=== PATIENT | male | born 1990 | race Caucasian/White ===

== ENCOUNTER 2019-10-30 11:45 | Emergency (ER) | payer OTHER ==
[~2019-10-30] VITALS: Ht 165.1 cm; Wt 67.1 kg
[~2019-10-30 11:45] MED LIST: ARIP2TAB3 PO; BUPR100T4 PO
--- NOTE | 2019-10-30 11:50 | NUR ---
BIB [facility], DROWSY AFTER TAKING XANAX, TO ER BED 13, HOOKED TO MONITOR, CHANGED TO HOSP GOWN, WARM BLANKET PROVIDED, BREATHING EVEN AND UNABORED, PATIENT OPENS EYES WHEN CALLED, WILL GO BACK TO SLEEP AFTER. DR LOCKE AT BEDSIDE FOR EVAL.
--- NOTE | 2019-10-30 13:33 | NUR ---
PATIENT IN BED ASLEEP, AROUSABLE BY TACTILE AND VERBAL STIMULI, HOOKED TO MONITOR, VSS. WILL CONTINUE TO MONITOR ACCORDINGLY.
--- NOTE | 2019-10-30 15:09 | NUR ---
PATIENT IN BED ASLEEP, AROUSABLE BY TATCILE AND VERBAL STIMULI, OPENS EYES, DOES NOT ANSWER QUESTIONS, AND GOES BACK TO SLEEP RIGHT AFTER. HOOKED TO MONITOR, VSS. WILL CONTINUE TO MONITOR ACORDINGLY.
--- NOTE | 2019-10-30 17:09 | NUR ---
PATIENT COMFORTABLE IN BED, AROUSABLE BY TATCILE AND VERBAL STIMULI, HOOKED TO MONITOR, VSS. WILL CONTINUE TO MONITOR.
--- NOTE | 2019-10-30 18:12 | NUR ---
PATIENT AWAKE, AAO, AMBULATED TO THE RESTROOM WITH STEADY GAIT. MADE MD AWARE
--- NOTE | 2019-10-30 19:11 | NUR ---
Patient given written and verbal discharge instructions. Patient verbalizes understanding of instructions. Patient is ambulatory with steady gait. Refuses offer of fci placement. Patient given list of available shelters in surrounding area. Patient discharged w proper clothing, name band removed, all belongings returned to patient.
[2019-10-30 19:13] VITALS: BP 134/56
== END 2019-10-30 19:13 | disposition home or self-care (01) ==
LOC: ER 11:45
DX: S00.33XA Contusion of nose, initial encounter (principal); F19.10 Other psychoactive substance abuse, uncomplicated; F32.9 Major depressive disorder, single episode, unspecified; F41.9 Anxiety disorder, unspecified; F17.200 Nicotine dependence, unspecified, uncomplicated; Z79.899 Other long term (current) drug therapy; W18.39XA Other fall on same level, initial encounter; Y93.89 Activity, other specified; Y92.89 Other specified places as the place of occurrence of the external cause; Y99.8 Other external cause status
CPT/HCPCS: 70450-TC

== ENCOUNTER 2020-10-18 06:03 | Inpatient (IN) | payer OTHER ==
[~2020-10-18] VITALS: Ht 162.6 cm; Wt 69.9 kg
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
--- NOTE | 2020-10-18 06:10 | NUR ---
DR. ROWE AT BEDSIDE FOR EVALUATION
--- NOTE | 2020-10-18 06:25 | NUR ---
URINE COLLECTED AND SENT TO THE LAB.
--- NOTE | 2020-10-18 06:45 | NUR ---
PER ENRIQUE OFFICER, CALL WHEN THE SUBJECT IS READY TO BE RELEASED.
--- NOTE | 2020-10-18 07:30 | NUR ---
The patient sleeping in ER bed #12. Responsive to tactile stimuli by opening eyes. Respiration regular and unlabored. Patient is in no apparent distress. Attached to the monitor. Will continue to monitor the patient.
--- NOTE | 2020-10-18 09:55 | NUR ---
PT ASLEEP, AWAKEN BY TACTILE STIMULI, WILL OPEN BOTH EYES & WILL GO BACK TO SLEEP. RR EVEN & UNLABORED. ON TELE, SR. O2 SAT 100. WILL CONT TO MONITOR.
--- NOTE | 2020-10-18 11:53 | NUR ---
PT ASLEEP, AWAKEN BY TACTILE STIMULI, WILL OPEN BOTH EYES & WILL GO BACK TO SLEEP. RR EVEN & UNLABORED. ON TELE, SR. O2 SAT 100% ON 2L. WILL CONT TO MONITOR.
[2020-10-18 12:13] LABS: BASOPHILS % (AUTO) 0.8 % (0.0-2.0); EOSINOPHILS % (AUTO) 1.9 % (0.0-6.0); HEMATOCRIT 42 % (39-51); HEMOGLOBIN 13.9 g/dL (13.5-17.5); MEAN CORPUSCULAR HGB CONC 33 g/dl (31.0-36.0); MEAN CORPUSCULAR VOLUME 88 fL (80-96); MONOCYTES # (AUTO) 0.4 /CMM (0.1-1.30); MONOCYTES % (AUTO) 7.2 % (2.0-12.0); NEUTROPHILS # (AUTO) 3.6 /CMM (1.8-8.9); NEUTROPHILS % (AUTO) 58.1 % (43.0-81.0); PLATELET COUNT (AUTO) 234 /CMM (150-450); RED BLOOD CELL COUNT(AUTO) 4.79 MIL/uL (4.5-6.0); WHITE BLOOD COUNT (AUTO) 6.2 K/uL (4.3-11.0)
--- NOTE | 2020-10-18 12:17 | NUR ---
Vibration Engineer note: technical services coordinator consult requested for overdose. Patient is a 30-year-old, male. Upon consult, patient was being taken to a CT scan. SW will continue to follow up with nursing staff and interview patient at a later time.
[2020-10-18 12:28] LABS: ALANINE AMINOTRANSFERASE 21 U/L (12-78); ALBUMIN 3.3 g/dL (3.4-5.0); ALCOHOL, BLOOD < 3 mg/dL (0-0); ALKALINE PHOSPHATASE 83 U/L (46-116); ASPARTATE AMINOTRANSFERASE 17 U/L (15-37); BILIRUBIN,DIRECT 0.1 mg/dL (0.0-0.2); BILIRUBIN,TOTAL 0.4 mg/dL (0.2-1.0); CALCIUM, SERUM 8.7 mg/dL (8.5-10.1); CARBON DIOXIDE 30 mmol/L (21-32); CHLORIDE 106 mmol/L (98-107); CREATININE 0.8 mg/dL (0.6-1.3); GLUCOSE 95 mg/dL (74-106); SODIUM SERUM 142 mmol/L (136-145); TOTAL PROTEIN, SERUM 6.5 g/dL (6.4-8.2); UREA NITROGEN, BLOOD 14 mg/dL (7-18)
[2020-10-18 12:54] LABS: ACETAMINOPHEN 0 ug/ml (10-30)
--- NOTE | 2020-10-18 13:30 | NUR ---
Red Lead Burner note: coordinator of library services consult requested for overdose. Patient is a 30-year-old, male. SW attempted to interview patient at his bedside in the emergency department, but patient was unarousable. SW notified ED RN Ugo that substance use resources have been filed in patient's discharge packet. ALONSO will continue to follow up with ED nursing staff and remain available as needed. Substance use resources provided included: [facility] Substance Abuse Self-Helpline (SAS) ; [facility] [address] [facility] [place] [id number] ; [facility] [address] [facility] [address] ; [facility] [address] [facility] [facility] [address] ; [facility] [address] [facility] [address] ; [facility] [address] [facility] [phone] ; [facility]; [facility] [place]; [facility]; [facility]
--- NOTE | 2020-10-18 23:00 | NUR ---
REMAINS IN BED, ASLEEP, VSS.
--- NOTE | 2020-10-18 23:20 | NUR ---
CLINICAL INFO GIVEN TO JIMENA [employer] INSTRUCTOR OVER THE PHONE AND VERBAL AUTH REC'D TO ADMIT THE PT
[2020-10-19] MEDS ORDERED: MAG HYDROX/AL HYDROX/SIMETH 30 ML UDC PO PRN
[2020-10-19] MEDS ORDERED: HYDROCODONE/APAP 5/325MG TABLET PO PRN
[2020-10-19] MEDS ORDERED: IV NS 0.9% 1,000 ML IV SCH
[2020-10-19] MEDS ORDERED: Z GUARD REMEDY 2 OZ OINT TP PRN
[2020-10-19] MEDS ORDERED: ZOLPIDEM TARTRATE 5 MG TABLET PO PRN
[2020-10-19] MEDS ORDERED: ACETAMINOPHEN 325 MG TABLET PO PRN
[2020-10-19] MEDS ORDERED: MAGNESIUM HYDROXIDE 30 ML UDC PO PRN
[2020-10-19] MEDS ORDERED: ONDANSETRON HCL/PF 4 MG/2 ML VIAL IVP PRN
[2020-10-19 00:30] VITALS: BP 119/76
--- NOTE | 2020-10-19 00:32 | NUR ---
report given to Mere. endorsed to RN to call [employer] once the pt is medically clear and ready for D/C.
[2020-10-19 01:00] VITALS: BP 119/76
--- NOTE | 2020-10-19 01:00 | NUR ---
pt was transferred to 314 under ACLS
[2020-10-19 04:00] VITALS: BP 112/72
[2020-10-19 06:42] LABS: CALCIUM, SERUM 8.2 mg/dL (8.5-10.1); CREATININE 0.8 mg/dL (0.6-1.3); PHOSPHORUS 3.8 mg/dL (2.5-4.9)
[2020-10-19 07:08] LABS: BASOPHILS % (AUTO) 0.2 % (0.0-2.0); EOSINOPHILS % (AUTO) 1.1 % (0.0-6.0); HEMATOCRIT 42 % (39-51); HEMOGLOBIN 13.9 g/dL (13.5-17.5); LYMPHOCYTES # (AUTO) 1.7 /CMM (0.8-4.8); LYMPHOCYTES % (AUTO) 17.5 % (20.0-44.0); MEAN CORPUSCULAR HGB CONC 34 g/dl (31.0-36.0); MEAN CORPUSCULAR VOLUME 88 fL (80-96); MONOCYTES # (AUTO) 0.7 /CMM (0.1-1.30); MONOCYTES % (AUTO) 7.5 % (2.0-12.0); NEUTROPHILS % (AUTO) 73.7 % (43.0-81.0); PLATELET COUNT (AUTO) 210 /CMM (150-450); RED BLOOD CELL COUNT(AUTO) 4.73 MIL/uL (4.5-6.0); WHITE BLOOD COUNT (AUTO) 9.6 K/uL (4.3-11.0)
--- NOTE | 2020-10-19 07:17 | NUR ---
BAREBACK RIDER OPENING NOTES PATIENT ALERT AND ORIENTED X 3. OBSERVED PATIENT HE WAS STANDING UP. PATIENT STATED, "I NEED TO LEAVE." I INFORMED HIM HE WILL BE SEEN BY THE DOCTOR TODAY, BUT PATIENT DID NOT WANT TO COMPLY. I INFORMED PATIENT OF MEDICAL RISKS IF PATIENT LEAVES. PATIENT REMOVED IV FROM SELF, UNWITNESSED. PATIENT REFUSED TO SIGN AMA CONSENT AND EXITED THE UNIT AT 0710. CHARGE NURSE, AMADOR GIFFORD.
[2020-10-19] MEDS ORDERED: ARIPIPRAZOLE 2 MG TABLET PO SCH (09:00)
[2020-10-19] MEDS ORDERED: buPROPion 100 MG TABLET PO SCH (09:00)
== END 2020-10-19 07:10 | disposition left against medical advice (07) | DRG 812 ==
LOC: ER 06:04 → TELE 10-19 00:35
PROVIDERS: ADMIT Family Medicine; ATTEND Nurse Practitioner Acute Care
DX: T40.601A Poisoning by unspecified narcotics, accidental (unintentional), initial encounter (principal); G92 Toxic encephalopathy; F20.9 Schizophrenia, unspecified; F32.9 Major depressive disorder, single episode, unspecified; Y92.480 Sidewalk as the place of occurrence of the external cause; F41.9 Anxiety disorder, unspecified; Y92.9 Unspecified place or not applicable; Z79.899 Other long term (current) drug therapy; F19.10 Other psychoactive substance abuse, uncomplicated; Z20.822 Contact with and (suspected) exposure to COVID-19
CPT/HCPCS: 36415; 70450-TC; 72125-TC; 80048-TC; 80061-TC; 80076-TC; 82962-TC; 83735-TC; 84100-TC; 85025-TC; 87081-TC; C9803; G0378; G0480; J7030

== ENCOUNTER 2020-10-21 17:13 | Emergency (ER) | payer OTHER ==
[~2020-10-21] VITALS: Ht 162.6 cm; Wt 63.5 kg
[2020-10-21 17:21] VITALS: BP 100/47
[2020-10-21] MEDS ORDERED: RALT400T PO (17:51)
[2020-10-21] MEDS ORDERED: EMTR1TAB12 PO (17:51)
--- NOTE | 2020-10-21 18:00 | NUR ---
PT WAS SEEN BY ED PROVIDER.
== END 2020-10-21 18:00 | disposition left against medical advice (07) ==
LOC: ER 17:13
DX: L98.9 Disorder of the skin and subcutaneous tissue, unspecified (principal); Z77.21 Contact with and (suspected) exposure to potentially hazardous body fluids; F32.9 Major depressive disorder, single episode, unspecified; F41.9 Anxiety disorder, unspecified; F20.9 Schizophrenia, unspecified; F17.200 Nicotine dependence, unspecified, uncomplicated; Z79.899 Other long term (current) drug therapy; Z59.0 Homelessness

== ENCOUNTER 2020-10-25 09:12 | Emergency (ER) | payer OTHER ==
[~2020-10-25] VITALS: Ht 167.6 cm; Wt 65.8 kg
[~2020-10-25 09:12] MED LIST changes: +EMTR1TAB12 PO; +RALT400T PO
--- NOTE | 2020-10-25 09:13 | NUR ---
CALLED TO TRIAGE,NO ANSWER
[2020-10-25 09:30] VITALS: BP 129/88
[2020-10-25] MEDS ORDERED: POLY17PO4 PO (09:35)
== END 2020-10-25 09:48 | disposition home or self-care (01) ==
LOC: ER 09:16
DX: K59.00 Constipation, unspecified (principal); F41.9 Anxiety disorder, unspecified; F31.9 Bipolar disorder, unspecified; F20.9 Schizophrenia, unspecified; F10.10 Alcohol abuse, uncomplicated; F17.200 Nicotine dependence, unspecified, uncomplicated; Y90.9 Presence of alcohol in blood, level not specified; Z79.899 Other long term (current) drug therapy

== ENCOUNTER 2020-12-17 08:48 | Emergency (ER) | payer OTHER ==
[~2020-12-17] VITALS: Ht 165.1 cm; Wt 68.0 kg
[~2020-12-17 08:48] MED LIST changes: +POLY17PO4 PO
[2020-12-17 08:54] VITALS: BP 106/67
--- NOTE | 2020-12-17 09:23 | NUR ---
Patient discharged to home in stable condition. Written and verbal after care instructions given. Patient verbalizes understanding of instruction.
== END 2020-12-17 09:23 | disposition home or self-care (01) ==
LOC: ER 09:06
DX: R21 Rash and other nonspecific skin eruption (principal); F32.9 Major depressive disorder, single episode, unspecified; F20.9 Schizophrenia, unspecified; F41.9 Anxiety disorder, unspecified; F17.200 Nicotine dependence, unspecified, uncomplicated; Z79.899 Other long term (current) drug therapy

== ENCOUNTER 2021-11-26 09:52 | Emergency (ER) | payer SELFPAY ==
[~2021-11-26] VITALS: Ht 167.6 cm; Wt 74.8 kg
[2021-11-26] MEDS ORDERED: NALO1DIS2 IM (10:00)
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
[2021-11-26 10:08] VITALS: BP 135/81
--- NOTE | 2021-11-26 10:08 | NUR ---
Patient given written and verbal discharge instructions. Patient verbalizes understanding of instructions. Patient is ambulatory with steady gait. Refuses offer of alf placement. Patient given list of available shelters in surrounding area.
== END 2021-11-26 10:08 | disposition home or self-care (01) ==
LOC: ER 09:54
DX: T40.601A Poisoning by unspecified narcotics, accidental (unintentional), initial encounter (principal); F32.A Depression, unspecified; F41.9 Anxiety disorder, unspecified; F20.9 Schizophrenia, unspecified; F17.200 Nicotine dependence, unspecified, uncomplicated; Z79.899 Other long term (current) drug therapy; Y92.89 Other specified places as the place of occurrence of the external cause

== ENCOUNTER 2021-12-10 17:40 | Emergency (ER) | payer SELFPAY ==
[~2021-12-10 17:40] MED LIST changes: +NALO1DIS2 IM
--- NOTE | 2021-12-10 17:43 | NUR ---
CALLED FOR TRIAGE NO ANSWER
--- NOTE | 2021-12-10 17:55 | NUR ---
CALLED FOR TRIAGE, NO ANSWER
== END 2021-12-10 18:00 | disposition left against medical advice (07) ==
LOC: ER 17:42
DX: Z53.21 Procedure and treatment not carried out due to patient leaving prior to being seen by health care provider (principal)

== ENCOUNTER 2022-02-25 18:41 | Emergency (ER) | payer SELFPAY ==
[~2022-02-25] VITALS: Ht 165.1 cm; Wt 61.2 kg
[2022-02-25 19:50] VITALS: BP 118/68
--- NOTE | 2022-02-25 19:50 | NUR ---
Patient discharged to home in stable condition. Written and verbal after care instructions given. Patient verbalizes understanding of instruction.
== END 2022-02-25 20:47 | disposition home or self-care (01) ==
LOC: ER 18:42
DX: K40.90 Unilateral inguinal hernia, without obstruction or gangrene, not specified as recurrent (principal); F32.A Depression, unspecified; F41.9 Anxiety disorder, unspecified; F20.9 Schizophrenia, unspecified; F17.200 Nicotine dependence, unspecified, uncomplicated; Z79.899 Other long term (current) drug therapy

== ENCOUNTER 2022-03-10 16:54 | Emergency (ER) | payer SELFPAY ==
[~2022-03-10] VITALS: Ht 165.1 cm; Wt 59.0 kg
[2022-03-10 17:40] VITALS: BP 131/72
[2022-03-10] MEDS ORDERED: CEPH500C2 PO (17:56)
[2022-03-10] MEDS ORDERED: SULF1TAB48 PO (17:56)
== END 2022-03-10 18:09 | disposition home or self-care (01) ==
LOC: ER 16:54
DX: L03.211 Cellulitis of face (principal); M19.90 Unspecified osteoarthritis, unspecified site; F32.A Depression, unspecified; F20.9 Schizophrenia, unspecified; F41.9 Anxiety disorder, unspecified; F17.200 Nicotine dependence, unspecified, uncomplicated; Z79.899 Other long term (current) drug therapy

== ENCOUNTER 2022-04-03 23:07 | Emergency (ER) | payer SELFPAY ==
[~2022-04-03 23:07] MED LIST changes: +CEPH500C2 PO; +SULF1TAB48 PO
--- NOTE | 2022-04-04 | NUR ---
PATIENT CALLED TO TRIAGE NO ANSWER
--- NOTE | 2022-04-04 00:15 | NUR ---
PATIENT NOT IN WAITING ROOM
== END 2022-04-04 00:20 | disposition left against medical advice (07) ==
LOC: ER 23:15
DX: Z53.21 Procedure and treatment not carried out due to patient leaving prior to being seen by health care provider (principal)

== ENCOUNTER 2023-05-15 13:54 | Inpatient (IN) | payer MEDICAID ==
[~2023-05-15] VITALS: Ht 160 cm; Wt 60.3 kg
[~2023-05-15 13:54] MED LIST changes: +BENZ-13 PO; +GUAI1TBM19 PO; +MINE105O TP
[2023-05-15 17:37] VITALS: O2SAT 100
[2023-05-15 17:41] VITALS: O2SAT 100
[2023-05-15 18:47] VITALS: BP 96/70; TEMP 98.2; O2SAT 100
[2023-05-15] MEDS ORDERED: DIPHENOXYLATE HCL/ATROP SULF 1 UDTAB TABLET GT PRN ×2 (20:00→21:00)
[2023-05-15] MEDS ORDERED: ACETAMINOPHEN 650 MG/20.3 ML UDC PO PRN (20:00)
[2023-05-15] MEDS ORDERED: CLONIDINE HCL 0.1 MG TABLET PO SCH (20:00)
[2023-05-15 20:18] VITALS: O2SAT 98
[2023-05-15] MEDS ORDERED: IBUPROFEN 400 MG TABLET GT PRN (20:30)
[2023-05-15] MEDS ORDERED: TUBERCULIN,PURIF.PROT.DERIV. 5 TU/0.1 ML VIAL ID SCH (20:30)
[2023-05-15] MEDS ORDERED: VITAL AF 1.2 1,000 ML BOTTLE GT PRN (20:30)
[2023-05-15] MEDS ORDERED: GABAPENTIN 300 MG CAPSULE GT SCH (20:30)
[2023-05-15] MEDS ORDERED: QUETIAPINE FUMARATE 100 MG TABLET PO SCH (20:30)
[2023-05-15] MEDS ORDERED: ENOXAPARIN SODIUM 30 MG/0.3 ML DISP.SYRIN SQ SCH (20:30)
[2023-05-15] MEDS ORDERED: oxyCODONE IR immediate release 5 MG TABLET GT PRN (20:30)
[2023-05-15] MEDS ORDERED: INSULIN ASPART/LISPRO 100 UNIT/ML CARTRIDGE SQ PRN (20:30)
[2023-05-15] MEDS ORDERED: IPRATROPIUM NEB FS 0.5 MG/2.5 ML AMPUL.NEB NEB PRN ×2 (20:30→21:00)
[2023-05-15] MEDS ORDERED: ALBUTEROL FS 2.5 MG/3 ML VIAL.NEB NEB PRN ×2 (20:30→21:00)
[2023-05-15] MEDS ORDERED: MAGNESIUM OXIDE 400 MG TABLET GT SCH (20:30)
[2023-05-15] MEDS ORDERED: DEXTROSE 50%-WATER 50 ML DISP.SYRIN IV PRN (20:30)
[2023-05-15] MEDS: HYDROGEN PEROXIDE 480 ML BOTTLE TP SCH (21:00)
[2023-05-15] MEDS: IMMODIUM GT SCH (21:30)
[2023-05-15 21:43] VITALS: BP 112/72; TEMP 97.9; O2SAT 95
[2023-05-15] MEDS: CLONIDINE HCL 0.1 MG TABLET GT SCH (22:10)
[2023-05-15] MEDS: METOPROLOL TARTRATE 25 MG TABLET GT SCH (22:10)
[2023-05-15] MEDS: ENOXAPARIN SODIUM 30 MG/0.3 ML DISP.SYRIN SQ SCH (22:11)
[2023-05-15] MEDS: QUETIAPINE FUMARATE 100 MG TABLET PO SCH (22:11)
[2023-05-15] MEDS: MAGNESIUM OXIDE 400 MG TABLET GT SCH (22:11)
[2023-05-15] MEDS: GABAPENTIN 300 MG CAPSULE GT SCH (22:11)
[2023-05-15] MEDS: BLOOD SUGAR DIAGNOSTIC 1 EACH STRIP IN SCH (22:23)
[2023-05-15] MEDS: INSULIN ASPART/LISPRO 100 UNIT/ML CARTRIDGE SQ PRN (22:24)
[2023-05-15 22:55] VITALS: O2SAT 100
[2023-05-16] VITALS (13 sets, daily range): BP systolic 105–117; BP diastolic 66–84; TEMP 98.2–99.7; O2SAT 97–100
[2023-05-16] MEDS: ALBUTEROL FS 2.5 MG/3 ML VIAL.NEB NEB SCH (01:36)
[2023-05-16] MEDS: IPRATROPIUM NEB FS 0.5 MG/2.5 ML AMPUL.NEB NEB SCH (01:36)
[2023-05-16] MEDS: ACETAMINOPHEN 650 MG/20.3 ML UDC PO PRN (02:30)
[2023-05-16 09:28] LABS: BASOPHILS # (AUTO) 0.1 K/uL (0.0-0.2); BASOPHILS % (AUTO) 0.5 % (0.0-2.0); EOSINOPHILS # (AUTO) 0.2 K/uL (0.0-0.7); EOSINOPHILS % (AUTO) 1.8 % (0.0-6.0); HEMATOCRIT 35 % (39-51); HEMOGLOBIN 11.3 g/dL (13.5-17.5); LYMPHOCYTES # (AUTO) 1.8 K/uL (0.8-4.8); LYMPHOCYTES % (AUTO) 15.6 % (20.0-44.0); MEAN CORPUSCULAR HEMOGLOBIN 29 PG (26.0-33.0); MEAN CORPUSCULAR HGB CONC 32 g/dl (31.0-36.0); MEAN CORPUSCULAR VOLUME 90 fL (80-96); MONOCYTES # (AUTO) 0.7 K/uL (0.1-1.30); MONOCYTES % (AUTO) 6.1 % (2.0-12.0); NEUTROPHILS # (AUTO) 8.7 K/uL (1.8-8.9); PLATELET COUNT (AUTO) 607 K/uL (150-450); RED BLOOD CELL COUNT(AUTO) 3.86 MIL/uL (4.5-6.0); RED CELL DISTRIBUTION WIDTH 15.8 % (11.5-15.0); WHITE BLOOD COUNT (AUTO) 11.4 K/uL (4.3-11.0)
[2023-05-16 09:42] LABS: CALCIUM, SERUM 9.9 mg/dL (8.5-10.1); CREATININE 0.4 mg/dL (0.6-1.3); POTASSIUM 4.3 mmol/L (3.5-5.1)
[2023-05-16] MEDS: ASPIRIN 81 MG TAB.CHEW GT SCH (09:47)
[2023-05-16] MEDS: AMLODIPINE BESYLATE 10 MG TABLET GT SCH (09:48)
[2023-05-16] MEDS ORDERED: SILVER NITRATE APPLICATOR 1 EA BOX TP SCH (12:30)
[2023-05-16] MEDS: VITAL AF 1.2 1,000 ML BOTTLE GT PRN (13:37)
[2023-05-16] MEDS: TUBERCULIN,PURIF.PROT.DERIV. 5 TU/0.1 ML VIAL ID SCH (18:47)
[2023-05-16] MEDS ORDERED: ACETAMINOPHEN 650 MG/20.3 ML UDC GT PRN (19:11)
[2023-05-16] MEDS: HYDROGEN PEROXIDE 480 ML BOTTLE TP SCH (20:05)
[2023-05-16] MEDS ORDERED: HYDROGEL DRESSING 90 GM TUBE TP SCH (21:00)
[2023-05-16] MEDS: ACETAMINOPHEN 650 MG/20.3 ML UDC GT SCH (21:22)
[2023-05-16] MEDS: BACI/NEOM/POLY B OINT PKT 1 UDPKT PACKET TP SCH ×2 (21:23)
[2023-05-16] MEDS: DAKINS HALF STRENGTH (0.25%) 480 ML BOTTLE TOP SCH (21:24)
[2023-05-16] MEDS: VITS A AND D/WHITE PET/LANOLIN 5 GM PACKET TP SCH (21:24)
[2023-05-16] MEDS: THERAHONEY GEL 1.5 OZ TUBE TP SCH (21:24)
[2023-05-17] VITALS (14 sets, daily range): BP systolic 103–145; BP diastolic 67–114; TEMP 97.9–98.8; O2SAT 99–100
[2023-05-17] MEDS: MULTIVITAMINS,THERAGRAN 1 UDTAB TABLET GT SCH (07:30)
[2023-05-17] MEDS: ZINC SULFATE 220 MG CAPSULE GT SCH (07:30)
[2023-05-17] MEDS: ARGININE/GLUTAMINE/CALCIUM BMB 1 EACH POWD.PACK GT SCH (09:24)
[2023-05-17] MEDS: ASCORBIC ACID 500 MG TABLET GT SCH (09:25)
[2023-05-18] VITALS (13 sets, daily range): BP systolic 87–124; BP diastolic 51–79; TEMP 97.5–97.7; O2SAT 98–100
[2023-05-19] VITALS (12 sets, daily range): BP systolic 100–103; BP diastolic 67–71; TEMP 98.6–99.3; O2SAT 94–100
[2023-05-19] MEDS ORDERED: DIPHENOXYLATE HCL/ATROP SULF 1 UDTAB TABLET GT PRN (19:30)
[2023-05-20] VITALS (12 sets, daily range): BP systolic 117–129; BP diastolic 62–87; TEMP 97.7; O2SAT 94–100
[2023-05-20] MEDS ORDERED: VANCOMYCIN HCL 125 MG/2.5 ML ORAL.SUSP GT SCH (11:30)
[2023-05-20] MEDS: COVID-19 VACC, SPIKEVAX /PF 50 MCG/0.5 ML VIAL/SYR IM ONE (14:53)
[2023-05-20] MEDS: VANCOMYCIN HCL 125 MG/2.5 ML ORAL.SUSP GT SCH (17:06)
[2023-05-20] MEDS: VITAL AF 1.2 1,000 ML BOTTLE GT PRN (18:00)
[2023-05-20] MEDS ORDERED: QUETIAPINE FUMARATE 100 MG TABLET GT SCH (18:21)
[2023-05-20] MEDS: QUETIAPINE FUMARATE 100 MG TABLET GT SCH (21:19)
[2023-05-21] VITALS (15 sets, daily range): BP systolic 84–122; BP diastolic 62–82; TEMP 97.5–100.9; O2SAT 97–100
[2023-05-21] MEDS: ENOXAPARIN SODIUM 30 MG/0.3 ML DISP.SYRIN SQ SCH (21:19)
[2023-05-22] VITALS (13 sets, daily range): BP systolic 92–102; BP diastolic 62–76; TEMP 97.7–98.2; O2SAT 98–100
[2023-05-22] MEDS: IBUPROFEN 400 MG TABLET GT PRN (00:52)
[2023-05-22 18:36] LABS: BASOPHILS % (AUTO) 0.4 % (0.0-2.0); EOSINOPHILS # (AUTO) 0.1 K/uL (0.0-0.7); EOSINOPHILS % (AUTO) 1.2 % (0.0-6.0); HEMATOCRIT 34 % (39-51); HEMOGLOBIN 10.8 g/dL (13.5-17.5); LYMPHOCYTES # (AUTO) 1.5 K/uL (0.8-4.8); LYMPHOCYTES % (AUTO) 14.4 % (20.0-44.0); MEAN CORPUSCULAR HEMOGLOBIN 29 PG (26.0-33.0); MEAN CORPUSCULAR HGB CONC 32 g/dl (31.0-36.0); MEAN CORPUSCULAR VOLUME 92 fL (80-96); MONOCYTES % (AUTO) 9.4 % (2.0-12.0); NEUTROPHILS # (AUTO) 7.8 K/uL (1.8-8.9); NEUTROPHILS % (AUTO) 74.6 % (43.0-81.0); PLATELET COUNT (AUTO) 408 K/uL (150-450); RED BLOOD CELL COUNT(AUTO) 3.68 MIL/uL (4.5-6.0); WHITE BLOOD COUNT (AUTO) 10.5 K/uL (4.3-11.0)
[2023-05-22 18:59] LABS: ALBUMIN 2.4 g/dL (3.4-5.0); BILIRUBIN,TOTAL 0.2 mg/dL (0.2-1.0); CALCIUM, SERUM 9.8 mg/dL (8.5-10.1); CREATININE 0.4 mg/dL (0.6-1.3); POTASSIUM 3.8 mmol/L (3.5-5.1); TOTAL PROTEIN, SERUM 7.7 g/dL (6.4-8.2)
[2023-05-22 19:14] LABS: THYROID STIMULATING HORMONE 2.991 uIU/mL (0.358-3.74)
[2023-05-23] VITALS (12 sets, daily range): BP systolic 107–115; BP diastolic 75–76; TEMP 98.6–99.7; O2SAT 96–100
[2023-05-23] MEDS: METRONIDAZOLE 500 MG TABLET GT SCH (21:20)
[2023-05-24] VITALS (12 sets, daily range): BP systolic 108–125; BP diastolic 77–83; TEMP 98.6–99.7; O2SAT 98–100
[2023-05-25] VITALS (12 sets, daily range): BP systolic 90–108; BP diastolic 55–78; TEMP 97.5–98.7; O2SAT 98–100
[2023-05-26] VITALS (14 sets, daily range): BP systolic 101–114; BP diastolic 70–77; TEMP 98.2–99; O2SAT 98–100
[2023-05-27] VITALS (13 sets, daily range): BP systolic 102–104; BP diastolic 71–76; TEMP 97.9–98.8; O2SAT 96–100
[2023-05-28] VITALS (12 sets, daily range): BP systolic 106–117; BP diastolic 67–82; TEMP 98.2–99.9; O2SAT 98–100
[2023-05-29] VITALS (12 sets, daily range): BP systolic 109–120; BP diastolic 69–82; TEMP 100.7–100.8; O2SAT 82–100
[2023-05-30] VITALS (14 sets, daily range): BP systolic 100–126; BP diastolic 69–86; TEMP 97.6–97.7; O2SAT 100
[2023-05-30] MEDS: ZINC SULFATE 220 MG CAPSULE GT SCH (09:00)
[2023-05-30] MEDS: MULTIVITAMINS,THERAGRAN 1 UDTAB TABLET GT SCH (09:00)
[2023-05-31] VITALS (12 sets, daily range): BP systolic 107–115; BP diastolic 76–80; TEMP 97.7–98.6; O2SAT 96–100
[2023-06-01] VITALS (13 sets, daily range): BP systolic 110–119; BP diastolic 77–79; TEMP 97.6–99.3; O2SAT 97–100
[2023-06-02] VITALS (12 sets, daily range): BP systolic 105–111; BP diastolic 74–78; TEMP 97.5–98.1; O2SAT 97–100
[2023-06-02] MEDS: LIDOCAINE 1%-EPI 1:100,000 20 ML VIAL TP ONE (17:01)
[2023-06-02] MEDS: COVID-19 VACC, SPIKEVAX /PF 50 MCG/0.5 ML VIAL/SYR IM ONE (17:01)
[2023-06-03] VITALS (13 sets, daily range): BP systolic 101–119; BP diastolic 72–81; TEMP 98.2–98.8; O2SAT 100
[2023-06-04] VITALS (14 sets, daily range): BP systolic 97–122; BP diastolic 64–85; TEMP 98.8–99; O2SAT 99–100
[2023-06-04] MEDS: INSULIN ASPART/LISPRO 100 UNIT/ML CARTRIDGE SQ PRN (21:23)
[2023-06-05] VITALS (11 sets, daily range): BP systolic 118; BP diastolic 79–81; TEMP 98–98.1; O2SAT 97–100
[2023-06-05] MEDS ORDERED: DEXTROSE 50%-WATER 50 ML DISP.SYRIN IV PRN (18:36)
[2023-06-06] VITALS (13 sets, daily range): BP systolic 106–118; BP diastolic 67–81; TEMP 98.6; O2SAT 98–100
[2023-06-06] MEDS: BLOOD SUGAR DIAGNOSTIC 1 EACH STRIP IN SCH (05:09)
[2023-06-06] MEDS: Z GUARD REMEDY 4 OZ OINT TP SCH (09:54)
[2023-06-06] MEDS: DAKINS QUARTER STRENGTH (0.125%) 480 ML BOTTLE TOP SCH (09:54)
[2023-06-06] MEDS: QUETIAPINE FUMARATE 25 MG TABLET GT SCH (20:49)
[2023-06-07] VITALS (13 sets, daily range): BP systolic 113–122; BP diastolic 74–89; TEMP 99.3–99.5; O2SAT 99–100
[2023-06-08] VITALS (12 sets, daily range): BP systolic 80–101; BP diastolic 60–75; TEMP 98–98.1; O2SAT 98–100
[2023-06-08] MEDS: oxyCODONE IR immediate release 5 MG TABLET GT PRN (06:42)
[2023-06-08] MEDS: LORAZEPAM INJ 2 MG/ML VIAL IV STA (07:20)
[2023-06-08 09:39] LABS: BASOPHILS % (AUTO) 0.2 % (0.0-2.0); EOSINOPHILS % (AUTO) 0.1 % (0.0-6.0); HEMATOCRIT 32 % (39-51); HEMOGLOBIN 10.6 g/dL (13.5-17.5); LYMPHOCYTES # (AUTO) 1.1 K/uL (0.8-4.8); LYMPHOCYTES % (AUTO) 12.3 % (20.0-44.0); MEAN CORPUSCULAR HEMOGLOBIN 29 PG (26.0-33.0); MEAN CORPUSCULAR HGB CONC 33 g/dl (31.0-36.0); MEAN CORPUSCULAR VOLUME 88 fL (80-96); MONOCYTES # (AUTO) 0.5 K/uL (0.1-1.30); MONOCYTES % (AUTO) 6.2 % (2.0-12.0); NEUTROPHILS % (AUTO) 81.2 % (43.0-81.0); PLATELET COUNT (AUTO) 428 K/uL (150-450); RED BLOOD CELL COUNT(AUTO) 3.62 MIL/uL (4.5-6.0); RED CELL DISTRIBUTION WIDTH 15.4 % (11.5-15.0); WHITE BLOOD COUNT (AUTO) 8.6 K/uL (4.3-11.0)
[2023-06-08] MEDS: IV NS 0.9% 1,000 ML IV ONE (10:30)
[2023-06-08 11:23] LABS: ALBUMIN 1.9 g/dL (3.4-5.0); BILIRUBIN,TOTAL 0.2 mg/dL (0.2-1.0); CREATININE 0.3 mg/dL (0.6-1.3); MAGNESIUM 1.9 mg/dL (1.8-2.4); PHOSPHORUS 4.8 mg/dL (2.5-4.9); POTASSIUM 3.5 mmol/L (3.5-5.1); TOTAL PROTEIN, SERUM 6.8 g/dL (6.4-8.2)
[2023-06-08] MEDS: AMIODARONE HCL 200 MG TABLET PO SCH (13:44)
[2023-06-09] VITALS (9 sets, daily range): BP systolic 102–110; BP diastolic 71–76; TEMP 98.1; O2SAT 98–100
[2023-06-09] MEDS: PNEUMOC 20-VAL CONJ-DIP CRM/PF 0.5 ML SYRINGE IM ONE (18:01)
[2023-06-10] VITALS (7 sets, daily range): BP systolic 94–113; BP diastolic 62–78; TEMP 97.9–98; O2SAT 99–100
[2023-06-11] VITALS (9 sets, daily range): BP systolic 90–105; BP diastolic 61–70; TEMP 98.1–98.6; O2SAT 97–100
[2023-06-12] VITALS (7 sets, daily range): BP systolic 106–116; BP diastolic 69–72; TEMP 97.7–97.9; O2SAT 98–100
[2023-06-13] VITALS (8 sets, daily range): BP systolic 90–109; BP diastolic 62–71; TEMP 97.9–98.1; O2SAT 99–100
[2023-06-13] MEDS: LEVETIRACETAM SOL (5 ML) 100 MG/ML UDC GT SCH (20:28)
[2023-06-14] VITALS (8 sets, daily range): BP systolic 98–99; BP diastolic 65–71; TEMP 97.9–98.8; O2SAT 96–100
[2023-06-14] MEDS: GABAPENTIN 300 MG CAPSULE GT SCH (13:26)
[2023-06-14] MEDS: IPRATROPIUM NEB FS 0.5 MG/2.5 ML AMPUL.NEB NEB SCH (19:54)
[2023-06-15] VITALS (11 sets, daily range): BP systolic 97; BP diastolic 66; TEMP 98.6; O2SAT 93–100
[2023-06-15] MEDS: IPRATROPIUM NEB FS 0.5 MG/2.5 ML AMPUL.NEB NEB SCH (08:04)
[2023-06-16] VITALS (13 sets, daily range): BP systolic 95–114; BP diastolic 65–87; TEMP 98.6–98.9; O2SAT 99–100
[2023-06-16] MEDS: AMIODARONE HCL 200 MG TABLET GT SCH (09:07)
[2023-06-17] VITALS (14 sets, daily range): BP systolic 90–128; BP diastolic 63–80; TEMP 97.9–98.7; O2SAT 97–100
[2023-06-17 16:43] LABS: BASOPHILS % (AUTO) 0.4 % (0.0-2.0); EOSINOPHILS # (AUTO) 0.3 K/uL (0.0-0.7); EOSINOPHILS % (AUTO) 2.1 % (0.0-6.0); HEMATOCRIT 34 % (39-51); HEMOGLOBIN 10.7 g/dL (13.5-17.5); LYMPHOCYTES % (AUTO) 16.7 % (20.0-44.0); MEAN CORPUSCULAR HEMOGLOBIN 28 PG (26.0-33.0); MEAN CORPUSCULAR HGB CONC 32 g/dl (31.0-36.0); MEAN CORPUSCULAR VOLUME 87 fL (80-96); MONOCYTES # (AUTO) 0.8 K/uL (0.1-1.30); MONOCYTES % (AUTO) 6.5 % (2.0-12.0); NEUTROPHILS % (AUTO) 74.3 % (43.0-81.0); PLATELET COUNT (AUTO) 643 K/uL (150-450); RED BLOOD CELL COUNT(AUTO) 3.87 MIL/uL (4.5-6.0); WHITE BLOOD COUNT (AUTO) 12.2 K/uL (4.3-11.0)
[2023-06-17 16:51] LABS: CALCIUM, SERUM 9.4 mg/dL (8.5-10.1); CREATININE 0.4 mg/dL (0.6-1.3); POTASSIUM 3.7 mmol/L (3.5-5.1)
[2023-06-18] VITALS (14 sets, daily range): BP systolic 106–109; BP diastolic 75–76; TEMP 98–98.6; O2SAT 96–100
[2023-06-18 09:37] LABS: APPEARANCE,URINE CLOUDY (CLEAR)
[2023-06-18 09:38] LABS: COLOR,URINE BROWN (YELLOW); PH,URINE 8.5 (5.0-8.0); PROTEIN,URINE 4+ mg/dl (NEGATIVE); UGLUCOSE NEGATIVE (NEGATIVE)
[2023-06-18 09:39] LABS: BILIRUBIN,URINE 2+ (NEGATIVE); BLOOD, URINE 3+ Ery/uL (NEGATIVE); KETONES,URINE NEGATIVE (NEGATIVE); LEUKOCYTE ESTERASE ,URINE 3+ (NEGATIVE); NITRITE, URINE POSITIVE (NEGATIVE); UROBILINOGEN,URINE 0.2 EU/dL (0.2)
[2023-06-18 10:01] LABS: ADD URINE CULTURE YES; BACTERIA,URINE 2+ /HPF (None Seen); SQUAMOUS EPITHELIAL CELL,UR Few /HPF (None Seen)
[2023-06-18 10:02] LABS: TRIPLE PHOSPHATE CRYSTAL,UR Moderate /HPF (None Seen)
[2023-06-19] VITALS (13 sets, daily range): BP systolic 85–97; BP diastolic 60–67; TEMP 97.7–99.1; O2SAT 98–100
[2023-06-20] VITALS (12 sets, daily range): BP systolic 126; BP diastolic 98; TEMP 97.7; O2SAT 95–100
[2023-06-20] MEDS ORDERED: ENOXAPARIN SODIUM 40 MG/0.4 ML DISP.SYRIN SQ SCH (13:00)
[2023-06-20] MEDS: METOPROLOL TARTRATE 25 MG TABLET GT SCH (20:57)
[2023-06-20] MEDS: ENOXAPARIN SODIUM 40 MG/0.4 ML DISP.SYRIN SQ SCH (20:58)
[2023-06-21] VITALS (12 sets, daily range): BP systolic 115–130; BP diastolic 89; TEMP 98–98.4; O2SAT 98–100
[2023-06-21] MEDS: CEFTRIAXONE 1 G in IV D5W 50 ML IV SCH (11:00)
[2023-06-22] VITALS (11 sets, daily range): BP systolic 125; BP diastolic 82; TEMP 97.9; O2SAT 98–100
[2023-06-22] MEDS: AMIODARONE HCL 200 MG TABLET GT SCH (09:19)
[2023-06-23] VITALS (12 sets, daily range): BP systolic 78–133; BP diastolic 78–94; TEMP 97.7–99; O2SAT 98–100
[2023-06-24] VITALS (12 sets, daily range): BP systolic 110–124; BP diastolic 79–86; TEMP 97.5–98.2; O2SAT 98–100
[2023-06-24] MEDS: CHOLESTYRAMINE/ASPARTAME 4 G/PKT PACKET GT SCH (17:48)
[2023-06-25] VITALS (13 sets, daily range): BP systolic 115–133; BP diastolic 71–84; TEMP 97.9–98.2; O2SAT 98–100
[2023-06-25] MEDS: AMANTADINE HCL 100 MG CAPSULE GT SCH (09:19)
[2023-06-26] VITALS (11 sets, daily range): BP systolic 110; BP diastolic 79–85; TEMP 97.4–98.5; O2SAT 98–100
[2023-06-26] MEDS ORDERED: AMANTADINE HCL 100 MG CAPSULE PO SCH (09:00)
[2023-06-26] MEDS ORDERED: QUETIAPINE FUMARATE 25 MG TABLET GT SCH (16:00)
[2023-06-26] MEDS: CHOLESTYRAMINE/ASPARTAME 4 G/PKT PACKET GT SCH (16:10)
[2023-06-27] VITALS (12 sets, daily range): BP systolic 102–116; BP diastolic 72–88; TEMP 97.3–97.5; O2SAT 98–100
[2023-06-28] VITALS (13 sets, daily range): BP systolic 107–124; BP diastolic 79–87; TEMP 98.1–98.4; O2SAT 96–100
[2023-06-29] VITALS (11 sets, daily range): BP systolic 109–114; BP diastolic 69–79; TEMP 97.7–97.9; O2SAT 97–100
[2023-06-30] VITALS (11 sets, daily range): BP systolic 120–126; BP diastolic 78–90; TEMP 97.9–98.4; O2SAT 98–100
[2023-07-01] VITALS (12 sets, daily range): BP systolic 109; BP diastolic 73; TEMP 98.8; O2SAT 94–100
[2023-07-01] MEDS: INFLUENZA VACCINE 2023-24 0.5 ML DISP.SYRIN IM ONE (03:34)
[2023-07-02] VITALS (12 sets, daily range): BP systolic 102–112; BP diastolic 74–87; TEMP 98.4–98.6; O2SAT 98–100
[2023-07-03] VITALS (12 sets, daily range): BP systolic 103–109; BP diastolic 80–81; TEMP 98.2–98.4; O2SAT 97–100
[2023-07-04] VITALS (12 sets, daily range): BP systolic 100–120; BP diastolic 71–90; TEMP 98.8–99.1; O2SAT 99–100
[2023-07-05] VITALS (12 sets, daily range): BP systolic 102; BP diastolic 74; TEMP 98; O2SAT 97–100
[2023-07-05] MEDS: VITAL AF 1.2 1,000 ML BOTTLE GT PRN (11:08)
[2023-07-06] VITALS (12 sets, daily range): BP systolic 113–123; BP diastolic 77–86; TEMP 98.1–99.1; O2SAT 98–99
[2023-07-07] VITALS (11 sets, daily range): BP systolic 118–131; BP diastolic 66–86; TEMP 98.2–98.6; O2SAT 97–100
[2023-07-08] VITALS (12 sets, daily range): BP systolic 109–130; BP diastolic 55–83; TEMP 97.9–98.8; O2SAT 96–100
[2023-07-09] VITALS (12 sets, daily range): BP systolic 107–110; BP diastolic 67–81; TEMP 97.5–98; O2SAT 98–100
[2023-07-10] VITALS (14 sets, daily range): BP systolic 106–128; BP diastolic 79–89; TEMP 98.1–98.8; O2SAT 96–100
[2023-07-11] VITALS (12 sets, daily range): BP systolic 123–131; BP diastolic 79–88; TEMP 97.9–99; O2SAT 98–100
[2023-07-12] VITALS (12 sets, daily range): BP systolic 113–126; BP diastolic 71–74; TEMP 98.1; O2SAT 89–100
[2023-07-13] VITALS (13 sets, daily range): BP systolic 112–121; BP diastolic 83–89; TEMP 98.1–98.2; O2SAT 98–100
[2023-07-14] VITALS (12 sets, daily range): BP systolic 111–112; BP diastolic 76–81; TEMP 97.9–98.2; O2SAT 97–100
[2023-07-15] VITALS (13 sets, daily range): BP systolic 116–129; BP diastolic 83–89; TEMP 98.8–99.1; O2SAT 95–100
[2023-07-15] MEDS: QUETIAPINE FUMARATE 25 MG TABLET GT SCH (09:07)
[2023-07-16] VITALS (12 sets, daily range): BP systolic 104–106; BP diastolic 76–78; TEMP 98.6; O2SAT 96–99
[2023-07-17] VITALS (12 sets, daily range): BP systolic 101–124; BP diastolic 73–92; TEMP 98.1–98.6; O2SAT 96–100
[2023-07-18] VITALS (14 sets, daily range): BP systolic 103–110; BP diastolic 72–83; TEMP 98.1–98.6; O2SAT 97–100
[2023-07-19] VITALS (11 sets, daily range): BP systolic 108–127; BP diastolic 74–76; TEMP 98–99.1; O2SAT 96–100
[2023-07-19] MEDS: VITAL AF 1.2 1,000 ML BOTTLE GT PRN (05:29)
[2023-07-19] MEDS: DAKINS QUARTER STRENGTH (0.125%) 480 ML BOTTLE TOP PRN (05:32)
[2023-07-19] MEDS: Z GUARD REMEDY 4 OZ OINT TP PRN (05:32)
[2023-07-19] MEDS: QUETIAPINE FUMARATE 25 MG TABLET GT SCH (21:08)
[2023-07-20] VITALS (12 sets, daily range): BP systolic 106–108; BP diastolic 70–84; TEMP 98.3–98.4; O2SAT 98–100
[2023-07-21] VITALS (12 sets, daily range): BP systolic 107–114; BP diastolic 81–83; TEMP 98.3–98.4; O2SAT 96–100
[2023-07-22] VITALS (12 sets, daily range): BP systolic 105–112; BP diastolic 71–79; TEMP 98.5–99; O2SAT 95–100
[2023-07-23] VITALS (13 sets, daily range): BP systolic 109–112; BP diastolic 75–81; TEMP 98.2–98.7; O2SAT 95–100
[2023-07-24] VITALS (12 sets, daily range): BP systolic 104–105; BP diastolic 71–77; TEMP 97.9–98.8; O2SAT 96–100
[2023-07-25] VITALS (12 sets, daily range): BP systolic 105–108; BP diastolic 71–72; TEMP 97.7–98.2; O2SAT 95–100
[2023-07-26] VITALS (14 sets, daily range): BP systolic 111–119; BP diastolic 76–88; TEMP 97.7–98.1; O2SAT 95–100
[2023-07-27] VITALS (13 sets, daily range): BP systolic 99–112; BP diastolic 70–86; TEMP 97.9–99.5; O2SAT 98–100
[2023-07-28] VITALS (13 sets, daily range): BP systolic 111–113; BP diastolic 71–80; TEMP 97.5–99; O2SAT 97–100
[2023-07-29] VITALS (13 sets, daily range): BP systolic 102–111; BP diastolic 72–74; TEMP 97.9–98.3; O2SAT 98–100
[2023-07-30] VITALS (13 sets, daily range): BP systolic 107–149; BP diastolic 67–81; TEMP 97.5–98.6; O2SAT 97–100
[2023-07-31] VITALS (12 sets, daily range): BP systolic 99; BP diastolic 75; TEMP 97.9; O2SAT 98–100
[2023-08-01] VITALS (12 sets, daily range): BP systolic 111–112; BP diastolic 68–80; TEMP 98.1–98.6; O2SAT 98–100
[2023-08-01 07:31] LABS: CALCIUM, SERUM 9.8 mg/dL (8.5-10.1); CREATININE 0.4 mg/dL (0.6-1.3); POTASSIUM 3.9 mmol/L (3.5-5.1)
[2023-08-01] MEDS: Z GUARD REMEDY 4 OZ OINT TP SCH (21:18)
[2023-08-02] VITALS (11 sets, daily range): BP systolic 111–112; BP diastolic 75–84; TEMP 98.1–98.6; O2SAT 98–100
[2023-08-03] VITALS (12 sets, daily range): BP systolic 118; BP diastolic 84; TEMP 99; O2SAT 95–100
[2023-08-04] VITALS (12 sets, daily range): BP systolic 98–106; BP diastolic 71–74; TEMP 98.1–98.2; O2SAT 98–100
[2023-08-05] VITALS (12 sets, daily range): BP systolic 114–118; BP diastolic 79–86; TEMP 97.7–98.7; O2SAT 98–100
[2023-08-05] MEDS ORDERED: JEVITY 1.5 CAL LIQUID 1,000 ML BOTTLE GT PRN (12:00)
[2023-08-05] MEDS: JEVITY 1.5 CAL LIQUID 1,000 ML BOTTLE GT PRN (17:00)
[2023-08-06] VITALS (12 sets, daily range): BP systolic 108–128; BP diastolic 71–79; TEMP 97–98.7; O2SAT 99–100
[2023-08-07] VITALS (17 sets, daily range): BP systolic 111–114; BP diastolic 73–78; TEMP 98.1–98.6; O2SAT 98–100
[2023-08-08] VITALS (16 sets, daily range): BP systolic 100–113; BP diastolic 65–96; TEMP 98.2; O2SAT 98–100
[2023-08-09] VITALS (12 sets, daily range): BP systolic 93–104; BP diastolic 64–74; TEMP 98.1–98.8; O2SAT 98–100
[2023-08-09] MEDS: TWOCAL HN 1,000 ML LIQUID GT PRN (13:04)
[2023-08-09] MEDS: CHOLESTYRAMINE/ASPARTAME 4 G/PKT PACKET GT SCH (17:35)
[2023-08-10] VITALS (13 sets, daily range): BP systolic 98–102; BP diastolic 70–80; TEMP 97.6–97.7; O2SAT 98–100
[2023-08-10] MEDS: CHOLESTYRAMINE/ASPARTAME 4 G/PKT PACKET GT SCH (21:01)
[2023-08-11] VITALS (13 sets, daily range): BP systolic 108–121; BP diastolic 75–81; TEMP 97.7–98.1; O2SAT 97–100
[2023-08-12] VITALS (14 sets, daily range): BP systolic 107–122; BP diastolic 67–73; TEMP 98.6–98.8; O2SAT 84–100
[2023-08-13] VITALS (15 sets, daily range): BP systolic 93–140; BP diastolic 61–84; TEMP 98.2–98.6; O2SAT 97–100
[2023-08-14] VITALS (15 sets, daily range): BP systolic 114–116; BP diastolic 81–84; TEMP 97.9–99.7; O2SAT 80–100
[2023-08-15] VITALS (14 sets, daily range): BP systolic 92; BP diastolic 65; TEMP 97.9; O2SAT 98–100
[2023-08-16] VITALS (13 sets, daily range): BP systolic 100–114; BP diastolic 74–78; TEMP 97.7–98.8; O2SAT 98–100
[2023-08-16] MEDS: TWOCAL HN 1,000 ML LIQUID GT PRN (18:22)
[2023-08-17] VITALS (12 sets, daily range): BP systolic 108–133; BP diastolic 75–93; TEMP 97.7–99; O2SAT 98–100
[2023-08-18] VITALS (12 sets, daily range): BP systolic 106–110; BP diastolic 73–78; TEMP 97.8–97.9; O2SAT 99–100
[2023-08-19] VITALS (13 sets, daily range): BP systolic 103–124; BP diastolic 67–78; TEMP 98.6; O2SAT 96–100
[2023-08-20] VITALS (13 sets, daily range): BP systolic 111–112; BP diastolic 76–82; TEMP 97.7–98.9; O2SAT 99–100
[2023-08-21] VITALS (13 sets, daily range): BP systolic 98–103; BP diastolic 68–73; TEMP 98–99.3; O2SAT 99–100
[2023-08-22] VITALS (13 sets, daily range): BP systolic 100–124; BP diastolic 62–71; TEMP 97.9–98.7; O2SAT 98–100
[2023-08-23] VITALS (13 sets, daily range): BP systolic 99–111; BP diastolic 69–75; TEMP 98.2–98.4; O2SAT 97–99
[2023-08-23] MEDS: PROSOURCE / PROSTAT (PYXIS) 30 ML UDC GT SCH (09:35)
[2023-08-24] VITALS (12 sets, daily range): BP systolic 90–102; BP diastolic 65–68; TEMP 97.3–98.6; O2SAT 99–100
[2023-08-25] VITALS (13 sets, daily range): BP systolic 98–113; BP diastolic 68–78; TEMP 97.6–98.3; O2SAT 99–100
[2023-08-26] VITALS (14 sets, daily range): BP systolic 101–108; BP diastolic 62–65; TEMP 97.8–98.6; O2SAT 99–100
[2023-08-27] VITALS (13 sets, daily range): BP systolic 109; BP diastolic 68; TEMP 98.2; O2SAT 99–100
[2023-08-28] VITALS (13 sets, daily range): BP systolic 98; BP diastolic 65; TEMP 98.5; O2SAT 96–100
[2023-08-29] VITALS (12 sets, daily range): BP systolic 96–108; BP diastolic 63–79; TEMP 97.9–98.1; O2SAT 95–100
[2023-08-30] VITALS (15 sets, daily range): BP systolic 94–110; BP diastolic 68–71; TEMP 97.5–97.9; O2SAT 96–100
[2023-08-31] VITALS (14 sets, daily range): BP systolic 98–113; BP diastolic 68–80; TEMP 98.2–98.8; O2SAT 99–100
[2023-09-01] VITALS (13 sets, daily range): BP systolic 97–108; BP diastolic 68–76; TEMP 97.9–98.8; O2SAT 98–100
[2023-09-01] MEDS: Z GUARD REMEDY 4 OZ OINT TP SCH (21:08)
[2023-09-02] VITALS (13 sets, daily range): BP systolic 98–103; BP diastolic 68–70; TEMP 97.7–98.8; O2SAT 74–100
[2023-09-03] VITALS (14 sets, daily range): BP systolic 124; BP diastolic 87; TEMP 98.3; O2SAT 98–100
[2023-09-04] VITALS (15 sets, daily range): BP systolic 101–105; BP diastolic 71–88; TEMP 97.7–98.1; O2SAT 98–100
[2023-09-05] VITALS (15 sets, daily range): BP systolic 98–110; BP diastolic 59–68; TEMP 97.9–99; O2SAT 98–100
[2023-09-06] VITALS (14 sets, daily range): BP systolic 94–96; BP diastolic 59–69; TEMP 97.8–98.9; O2SAT 98–100
[2023-09-07] VITALS (13 sets, daily range): BP systolic 105–115; BP diastolic 69–89; TEMP 97.9–99; O2SAT 95–100
[2023-09-08] VITALS (14 sets, daily range): BP systolic 106–107; BP diastolic 63–73; TEMP 97.9–98.2; O2SAT 98–100
[2023-09-09] VITALS (13 sets, daily range): BP systolic 100–104; BP diastolic 75–78; TEMP 98.1–99; O2SAT 96–100
[2023-09-10] VITALS (17 sets, daily range): BP systolic 109–126; BP diastolic 71–73; TEMP 98.1–99.1; O2SAT 74–100
[2023-09-11] VITALS (12 sets, daily range): BP systolic 101–109; BP diastolic 68–70; TEMP 97.3–98.5; O2SAT 97–100
[2023-09-12] VITALS (14 sets, daily range): BP systolic 98–102; BP diastolic 60–67; TEMP 97.7–98.6; O2SAT 60–100
[2023-09-13] VITALS (13 sets, daily range): BP systolic 92–103; BP diastolic 64–68; TEMP 98.2; O2SAT 94–100
[2023-09-14] VITALS (12 sets, daily range): BP systolic 108; BP diastolic 63; TEMP 98.2; O2SAT 97–100
[2023-09-15] VITALS (12 sets, daily range): BP systolic 98–103; BP diastolic 62–67; TEMP 98.2–98.3; O2SAT 97–99
[2023-09-16] VITALS (11 sets, daily range): BP systolic 97–105; BP diastolic 63–88; TEMP 98.1–98.7; O2SAT 95–99
[2023-09-17] VITALS (15 sets, daily range): BP systolic 99; BP diastolic 59; TEMP 98.3; O2SAT 96–100
[2023-09-17] MEDS: ZINC OXIDE 56.7 GM TUBE TP SCH (20:58)
[2023-09-18] VITALS (14 sets, daily range): BP systolic 99–111; BP diastolic 69–71; TEMP 98.3–98.7; O2SAT 95–100
[2023-09-19] VITALS (14 sets, daily range): BP systolic 99–129; BP diastolic 67–89; TEMP 97.5–98.8; O2SAT 96–100
[2023-09-20] VITALS (12 sets, daily range): BP systolic 95–98; BP diastolic 57–66; TEMP 98–98.8; O2SAT 94–99
[2023-09-21] VITALS (13 sets, daily range): BP systolic 105–116; BP diastolic 70–72; TEMP 97.8–98.6; O2SAT 96–100
[2023-09-22] VITALS (12 sets, daily range): BP systolic 100–102; BP diastolic 67–70; TEMP 98–98.3; O2SAT 96–100
[2023-09-23] VITALS (15 sets, daily range): BP systolic 97–108; BP diastolic 75–84; TEMP 98–98.3; O2SAT 97–100
[2023-09-24] VITALS (15 sets, daily range): BP systolic 95–105; BP diastolic 68–79; TEMP 98.1–98.7; O2SAT 97–99
[2023-09-24] MEDS: METOPROLOL TARTRATE 50 MG TABLET GT SCH (21:40)
[2023-09-25] VITALS (16 sets, daily range): BP systolic 99–101; BP diastolic 66–68; TEMP 97.8–97.9; O2SAT 97–99
[2023-09-26] VITALS (13 sets, daily range): BP systolic 95–104; BP diastolic 60–84; TEMP 97.5–98.4; O2SAT 96–100
[2023-09-27] VITALS (12 sets, daily range): BP systolic 94–97; BP diastolic 60; TEMP 97.4–98.1; O2SAT 95–99
[2023-09-28] VITALS (12 sets, daily range): BP systolic 91–112; BP diastolic 57–85; TEMP 97.7–98.8; O2SAT 98–99
[2023-09-29] VITALS (13 sets, daily range): BP systolic 98–99; BP diastolic 64–65; TEMP 98.1; O2SAT 97–99
[2023-09-30] VITALS (13 sets, daily range): BP systolic 98–108; BP diastolic 50–81; TEMP 97.7–99; O2SAT 95–99
[2023-10-01] VITALS (14 sets, daily range): BP systolic 96–104; BP diastolic 62–68; TEMP 98–98.4; O2SAT 96–100
[2023-10-01] MEDS: TUBERCULIN,PURIF.PROT.DERIV. 5 TU/0.1 ML VIAL ID SCH (19:00)
[2023-10-01] MEDS: ACETAMINOPHEN LIQUID 325 MG/10.1 ML UDC GT SCH (21:02)
[2023-10-02] VITALS (11 sets, daily range): BP systolic 98; BP diastolic 61; TEMP 98.6; O2SAT 97–100
[2023-10-02] MEDS: Z GUARD REMEDY 4 OZ OINT TP SCH (09:59)
[2023-10-02] MEDS: IV NS 0.9% 1,000 ML IV ONE (11:00)
[2023-10-02] MEDS: GUAIFENESIN 300 MG/15 ML UDC GT PRN (22:34)
[2023-10-03] VITALS (12 sets, daily range): BP systolic 93–95; BP diastolic 55–61; TEMP 98.3–98.5; O2SAT 79–100
[2023-10-04] VITALS (15 sets, daily range): BP systolic 97–111; BP diastolic 59–70; TEMP 98.2–99.1; O2SAT 95–100
[2023-10-05] VITALS (12 sets, daily range): BP systolic 90–93; BP diastolic 57–62; TEMP 97.7–98.6; O2SAT 97–100
[2023-10-06] VITALS (12 sets, daily range): BP systolic 94–102; BP diastolic 64–72; TEMP 97.9–98.4; O2SAT 98–100
[2023-10-07] VITALS (11 sets, daily range): BP systolic 104–106; BP diastolic 70–74; TEMP 98.8; O2SAT 96–100
[2023-10-07] MEDS: VITS A AND D/WHITE PET/LANOLIN 5 GM PACKET TP SCH (09:59)
[2023-10-08] VITALS (12 sets, daily range): BP systolic 98–105; BP diastolic 64–65; TEMP 98.4–98.6; O2SAT 96–100
[2023-10-09] VITALS (9 sets, daily range): BP systolic 107; BP diastolic 71; TEMP 98.6; O2SAT 96–100
[2023-10-09] MEDS: diphenhydrAMINE HCL ELIX 25 MG/10 ML UDC GT PRN (19:28)
[2023-10-09] MEDS: CARBAMIDE PEROXIDE OTIC 15 ML BOTTLE OT SCH (20:32)
[2023-10-10] VITALS (13 sets, daily range): BP systolic 96–97; BP diastolic 57–60; TEMP 97.4–98.1; O2SAT 98–100
[2023-10-11] VITALS (12 sets, daily range): BP systolic 104; BP diastolic 60; TEMP 98.4; O2SAT 99–100
[2023-10-12] VITALS (13 sets, daily range): BP systolic 94–95; BP diastolic 64–68; TEMP 97–98.8; O2SAT 98–100
[2023-10-13] VITALS (13 sets, daily range): BP systolic 91–118; BP diastolic 54–86; TEMP 98.3–98.4; O2SAT 98–100
[2023-10-13 07:05] LABS: BASOPHILS % (AUTO) 0.5 % (0.0-2.0); EOSINOPHILS # (AUTO) 0.1 K/uL (0.0-0.7); HEMATOCRIT 37 % (39-51); HEMOGLOBIN 12.6 g/dL (13.5-17.5); LYMPHOCYTES # (AUTO) 1.6 K/uL (0.8-4.8); LYMPHOCYTES % (AUTO) 26.7 % (20.0-44.0); MEAN CORPUSCULAR HEMOGLOBIN 29 PG (26.0-33.0); MEAN CORPUSCULAR HGB CONC 34 g/dl (31.0-36.0); MEAN CORPUSCULAR VOLUME 87 fL (80-96); MONOCYTES # (AUTO) 0.5 K/uL (0.1-1.30); MONOCYTES % (AUTO) 8.3 % (2.0-12.0); NEUTROPHILS # (AUTO) 3.7 K/uL (1.8-8.9); NEUTROPHILS % (AUTO) 62.5 % (43.0-81.0); PLATELET COUNT (AUTO) 274 K/uL (150-450); RED BLOOD CELL COUNT(AUTO) 4.32 MIL/uL (4.5-6.0); RED CELL DISTRIBUTION WIDTH 15.5 % (11.5-15.0); WHITE BLOOD COUNT (AUTO) 5.9 K/uL (4.3-11.0)
[2023-10-13 07:53] LABS: CALCIUM, SERUM 9.9 mg/dL (8.5-10.1); CREATININE 0.5 mg/dL (0.6-1.3); POTASSIUM 3.9 mmol/L (3.5-5.1)
[2023-10-13] MEDS: METOPROLOL TARTRATE 25 MG TABLET GT SCH (21:09)
[2023-10-14] VITALS (12 sets, daily range): BP systolic 100–105; BP diastolic 64–67; TEMP 98.7–99; O2SAT 97–100
[2023-10-15] VITALS (14 sets, daily range): BP systolic 94–103; BP diastolic 59–63; TEMP 97.8–98.3; O2SAT 96–100
[2023-10-16] VITALS (13 sets, daily range): BP systolic 98–104; BP diastolic 65–74; TEMP 98.1–98.8; O2SAT 99–100
[2023-10-17] VITALS (12 sets, daily range): BP systolic 93–98; BP diastolic 59–67; TEMP 97.6–98.1; O2SAT 98–100
[2023-10-18] VITALS (12 sets, daily range): BP systolic 99–100; BP diastolic 63–65; TEMP 98.2–98.6; O2SAT 99–100
[2023-10-19] VITALS (11 sets, daily range): BP systolic 101–107; BP diastolic 58–60; TEMP 98.6–98.8; O2SAT 98–100
[2023-10-20] VITALS (10 sets, daily range): BP systolic 128; BP diastolic 61; TEMP 98.1; O2SAT 98–100
[2023-10-21] VITALS (14 sets, daily range): BP systolic 101–105; BP diastolic 68–75; TEMP 98.2–98.6; O2SAT 98–100
[2023-10-22] VITALS (13 sets, daily range): BP systolic 98; BP diastolic 62; TEMP 98.5; O2SAT 94–100
[2023-10-23] VITALS (13 sets, daily range): BP systolic 93–101; BP diastolic 55–63; TEMP 97.8–98.4; O2SAT 99–100
[2023-10-24] VITALS (13 sets, daily range): BP systolic 89–95; BP diastolic 54–68; TEMP 97.9; O2SAT 98–100
[2023-10-25] VITALS (12 sets, daily range): BP systolic 100–109; BP diastolic 57–69; TEMP 98.2–99; O2SAT 98–100
[2023-10-26] VITALS (15 sets, daily range): BP systolic 99–108; BP diastolic 66–76; TEMP 97.5; O2SAT 99–100
[2023-10-27] VITALS (13 sets, daily range): BP systolic 102–115; BP diastolic 61–85; TEMP 98.5–98.9; O2SAT 99–100
[2023-10-28] VITALS (12 sets, daily range): BP systolic 98–107; BP diastolic 70–73; TEMP 97.7–98.4; O2SAT 98–100
[2023-10-29] VITALS (12 sets, daily range): BP systolic 141; BP diastolic 73; TEMP 98.1; O2SAT 99–100
[2023-10-30] VITALS (15 sets, daily range): BP systolic 100–110; BP diastolic 63–71; TEMP 97.5–98.2; O2SAT 97–100
[2023-10-31] VITALS (13 sets, daily range): BP systolic 98–103; BP diastolic 58–70; TEMP 98.6–98.8; O2SAT 98–100
[2023-11-01] VITALS (12 sets, daily range): BP systolic 100–103; BP diastolic 54–63; TEMP 97.7–98.1; O2SAT 98–100
[2023-11-02] VITALS (14 sets, daily range): BP systolic 103–116; BP diastolic 63–64; TEMP 97.7–98.6; O2SAT 99–100
[2023-11-03] VITALS (13 sets, daily range): BP systolic 106–111; BP diastolic 68–72; TEMP 97.7–98.8; O2SAT 97–100
[2023-11-04] VITALS (12 sets, daily range): BP systolic 99–135; BP diastolic 61–69; TEMP 97.3–98.1; O2SAT 98–100
[2023-11-04] MEDS: BACLOFEN (10 MG) 10 MG TABLET GT SCH (17:27)
[2023-11-05] VITALS (12 sets, daily range): BP systolic 101–112; BP diastolic 56–68; TEMP 97.8–98.4; O2SAT 99–100
[2023-11-05] MEDS: CARBAMIDE PEROXIDE OTIC 15 ML BOTTLE OT SCH (08:40)
[2023-11-05] MEDS ORDERED: BARIUM SULFATE 98% 135 ML SUSP.RECON PO ONE (13:12)
[2023-11-06] VITALS (12 sets, daily range): BP systolic 96–115; BP diastolic 61–79; TEMP 97.8–98.1; O2SAT 98–100
[2023-11-07] VITALS (12 sets, daily range): BP systolic 98–99; BP diastolic 58–60; TEMP 97.5–98.1; O2SAT 97–100
[2023-11-07] MEDS: NEOMY SULF/BACITRAC ZN/POLY 15 GM TUBE TP SCH (09:45)
[2023-11-08] VITALS (12 sets, daily range): BP systolic 92–112; BP diastolic 57–71; TEMP 97.6–97.9; O2SAT 99–100
[2023-11-09] VITALS (13 sets, daily range): BP systolic 99–101; BP diastolic 66; TEMP 98.3–98.4; O2SAT 98–100
[2023-11-09] MEDS ORDERED: Z GUARD REMEDY 2 OZ OINT TP PRN (11:00)
[2023-11-09] MEDS: Z GUARD REMEDY 2 OZ OINT TP SCH (20:40)
[2023-11-10] VITALS (12 sets, daily range): BP systolic 89–103; BP diastolic 54–67; TEMP 97.7–98.1; O2SAT 97–99
[2023-11-10] MEDS: Z GUARD REMEDY 4 OZ OINT TP SCH (09:00)
[2023-11-10] MEDS ORDERED: Z GUARD REMEDY 4 OZ OINT TP PRN (09:30)
[2023-11-11] VITALS (12 sets, daily range): BP systolic 91–99; BP diastolic 57–59; TEMP 97.9–98; O2SAT 98–100
[2023-11-12] VITALS (12 sets, daily range): BP systolic 98–101; BP diastolic 52–60; TEMP 97–97.9; O2SAT 98–100
[2023-11-13] VITALS (13 sets, daily range): BP systolic 93–110; BP diastolic 47–67; TEMP 97.6–98.4; O2SAT 98–100
[2023-11-14] VITALS (12 sets, daily range): BP systolic 98; BP diastolic 52; TEMP 98.2; O2SAT 98–100
[2023-11-15] VITALS (12 sets, daily range): BP systolic 92–103; BP diastolic 53–54; TEMP 98.1–98.2; O2SAT 97–100
[2023-11-15] MEDS: IBUPROFEN 400 MG TABLET GT SCH (09:19)
[2023-11-16] VITALS (12 sets, daily range): BP systolic 92–99; BP diastolic 48–51; TEMP 97–97.9; O2SAT 98–100
[2023-11-17] VITALS (12 sets, daily range): BP systolic 98; BP diastolic 52; TEMP 98–98.1; O2SAT 98–100
[2023-11-17 08:03] LABS: CALCIUM, SERUM 8.7 mg/dL (8.5-10.1); CREATININE 0.4 mg/dL (0.6-1.3); POTASSIUM 3.9 mmol/L (3.5-5.1)
[2023-11-18] VITALS (11 sets, daily range): BP systolic 96; BP diastolic 58; TEMP 98.1; O2SAT 98–100
[2023-11-18 07:16] LABS: BASOPHILS # (AUTO) 0.1 K/uL (0.0-0.2); BASOPHILS % (AUTO) 0.7 % (0.0-2.0); EOSINOPHILS # (AUTO) 0.3 K/uL (0.0-0.7); EOSINOPHILS % (AUTO) 2.7 % (0.0-6.0); HEMATOCRIT 36 % (39-51); HEMOGLOBIN 12.3 g/dL (13.5-17.5); LYMPHOCYTES # (AUTO) 2.7 K/uL (0.8-4.8); LYMPHOCYTES % (AUTO) 28.7 % (20.0-44.0); MEAN CORPUSCULAR HEMOGLOBIN 30 PG (26.0-33.0); MEAN CORPUSCULAR HGB CONC 34 g/dl (31.0-36.0); MEAN CORPUSCULAR VOLUME 89 fL (80-96); MONOCYTES # (AUTO) 0.7 K/uL (0.1-1.30); NEUTROPHILS # (AUTO) 5.8 K/uL (1.8-8.9); NEUTROPHILS % (AUTO) 60.9 % (43.0-81.0); PLATELET COUNT (AUTO) 175 K/uL (150-450); RED BLOOD CELL COUNT(AUTO) 4.05 MIL/uL (4.5-6.0); RED CELL DISTRIBUTION WIDTH 15.2 % (11.5-15.0); WHITE BLOOD COUNT (AUTO) 9.5 K/uL (4.3-11.0)
[2023-11-18 08:04] LABS: CALCIUM, SERUM 8.6 mg/dL (8.5-10.1); CREATININE 0.5 mg/dL (0.6-1.3); POTASSIUM 4.6 mmol/L (3.5-5.1)
[2023-11-18] MEDS: IBUPROFEN SUSP 100 MG/5 ML UDC GT SCH (09:52)
[2023-11-19] VITALS (13 sets, daily range): BP systolic 95–129; BP diastolic 55–61; TEMP 97.3–98; O2SAT 98–100
[2023-11-20] VITALS (11 sets, daily range): BP systolic 99–120; BP diastolic 61–62; TEMP 97.9–98.6; O2SAT 97–100
[2023-11-21] VITALS (13 sets, daily range): BP systolic 96–98; BP diastolic 57–68; TEMP 97.2–97.5; O2SAT 98–100
[2023-11-22] VITALS (14 sets, daily range): BP systolic 93–111; BP diastolic 53–71; TEMP 97.8–98.4; O2SAT 98–100
[2023-11-23] VITALS (14 sets, daily range): BP systolic 97–106; BP diastolic 61–68; TEMP 98.1–98.6; O2SAT 98–100
[2023-11-24] VITALS (13 sets, daily range): BP systolic 90–117; BP diastolic 46–76; TEMP 98–98.4; O2SAT 98–100
[2023-11-24 09:57] LABS: CALCIUM, SERUM 9.3 mg/dL (8.5-10.1); CREATININE 0.5 mg/dL (0.6-1.3); POTASSIUM 4.1 mmol/L (3.5-5.1)
[2023-11-25] VITALS (13 sets, daily range): BP systolic 98–103; BP diastolic 61–71; TEMP 97.7–98.3; O2SAT 99–100
[2023-11-26] VITALS (12 sets, daily range): BP systolic 98; BP diastolic 54–57; TEMP 97.5–98.1; O2SAT 97–100
[2023-11-27] VITALS (13 sets, daily range): BP systolic 99–101; BP diastolic 60–62; TEMP 97.7–98.2; O2SAT 98–100
[2023-11-28] VITALS (11 sets, daily range): BP systolic 95–98; BP diastolic 59–70; TEMP 97.5–98.2; O2SAT 98–100
[2023-11-28] MEDS: QUETIAPINE FUMARATE 25 MG TABLET GT SCH (16:37)
[2023-11-28] MEDS ORDERED: QUETIAPINE FUMARATE 25 MG TABLET GT SCH (17:00)
[2023-11-29] VITALS (12 sets, daily range): BP systolic 100–101; BP diastolic 56–69; TEMP 97.2–97.9; O2SAT 99–100
[2023-11-30] VITALS (13 sets, daily range): BP systolic 89–98; BP diastolic 60–61; TEMP 97.9–98.4; O2SAT 95–100
[2023-12-01] VITALS (12 sets, daily range): BP systolic 94–108; BP diastolic 59–68; TEMP 98.2–98.4; O2SAT 98–100
[2023-12-01 07:45] LABS: CALCIUM, SERUM 9.3 mg/dL (8.5-10.1); CREATININE 0.5 mg/dL (0.6-1.3); POTASSIUM 4.1 mmol/L (3.5-5.1)
[2023-12-02] VITALS (12 sets, daily range): BP systolic 103–115; BP diastolic 62–71; TEMP 97.7–98.7; O2SAT 97–100
[2023-12-03] VITALS (11 sets, daily range): BP systolic 98; BP diastolic 57; TEMP 98.2; O2SAT 97–100
[2023-12-04] VITALS (13 sets, daily range): BP systolic 100–102; BP diastolic 61–68; TEMP 98–98.2; O2SAT 98–100
[2023-12-05] VITALS (14 sets, daily range): BP systolic 103–106; BP diastolic 67–69; TEMP 98.3–98.4; O2SAT 96–100
[2023-12-06] VITALS (10 sets, daily range): BP systolic 97–119; BP diastolic 64–70; TEMP 98.1–98.5; O2SAT 99–100
[2023-12-07] VITALS (11 sets, daily range): BP systolic 95–111; BP diastolic 63–82; TEMP 98; O2SAT 98–100
[2023-12-08] VITALS (11 sets, daily range): BP systolic 102–106; BP diastolic 65–66; TEMP 98–98.2; O2SAT 96–100
[2023-12-08 07:47] LABS: CALCIUM, SERUM 9.6 mg/dL (8.5-10.1); CREATININE 0.6 mg/dL (0.6-1.3); POTASSIUM 4.2 mmol/L (3.5-5.1)
[2023-12-09] VITALS (12 sets, daily range): BP systolic 98–105; BP diastolic 61–66; TEMP 98–98.1; O2SAT 97–100
[2023-12-10] VITALS (14 sets, daily range): BP systolic 97–115; BP diastolic 63–69; TEMP 98–98.1; O2SAT 95–100
[2023-12-10] MEDS: Z GUARD REMEDY 4 OZ OINT TP SCH (09:55)
[2023-12-11] VITALS (14 sets, daily range): BP systolic 99–114; BP diastolic 57–67; TEMP 98.4–98.6; O2SAT 97–100
[2023-12-12] VITALS (13 sets, daily range): BP systolic 98–106; BP diastolic 62–63; TEMP 98.7; O2SAT 96–100
[2023-12-13] VITALS (12 sets, daily range): BP systolic 96–99; BP diastolic 64–65; TEMP 98.5–98.8; O2SAT 96–100
[2023-12-13] MEDS: QUETIAPINE FUMARATE 25 MG TABLET PO SCH (16:58)
[2023-12-14] VITALS (12 sets, daily range): BP systolic 92–111; BP diastolic 65; TEMP 97.3–97.5; O2SAT 95–99
[2023-12-15] VITALS (13 sets, daily range): BP systolic 106–126; BP diastolic 56–69; TEMP 98; O2SAT 95–100
[2023-12-15 07:42] LABS: CALCIUM, SERUM 9.1 mg/dL (8.5-10.1); CREATININE 0.6 mg/dL (0.6-1.3); POTASSIUM 3.8 mmol/L (3.5-5.1)
[2023-12-16] VITALS (12 sets, daily range): BP systolic 97–102; BP diastolic 60–62; TEMP 97.9–98.3; O2SAT 96–100
[2023-12-17] VITALS (12 sets, daily range): BP systolic 101; BP diastolic 58; TEMP 98.5; O2SAT 97–100
[2023-12-18] VITALS (13 sets, daily range): BP systolic 96–98; BP diastolic 62–67; TEMP 97.5–98.4; O2SAT 97–100
[2023-12-18] MEDS: Z GUARD REMEDY 4 OZ OINT TP SCH (09:35)
[2023-12-18] MEDS ORDERED: ARIPIPRAZOLE 5 MG TABLET PO SCH (17:00)
[2023-12-19] VITALS (14 sets, daily range): BP systolic 95–98; BP diastolic 69–71; TEMP 97–98.3; O2SAT 97–99
[2023-12-19] MEDS: TRAZODONE 50 MG TABLET PO SCH (21:26)
[2023-12-20] VITALS (14 sets, daily range): BP systolic 90–114; BP diastolic 62–63; TEMP 97.5–98.2; O2SAT 97–100
[2023-12-21] VITALS (12 sets, daily range): BP systolic 98; BP diastolic 70; TEMP 97.8; O2SAT 98–100
[2023-12-22] VITALS (12 sets, daily range): BP systolic 97–103; BP diastolic 65–70; TEMP 97.4–97.6; O2SAT 99–100
[2023-12-22 11:27] LABS: CALCIUM, SERUM 9.3 mg/dL (8.5-10.1); CREATININE 0.5 mg/dL (0.6-1.3)
[2023-12-23] VITALS (10 sets, daily range): BP systolic 90–116; BP diastolic 70–80; TEMP 97–98.7; O2SAT 94–100
[2023-12-24] VITALS (12 sets, daily range): BP systolic 100–107; BP diastolic 66–71; TEMP 97.5–98.8; O2SAT 99–100
[2023-12-25] VITALS (14 sets, daily range): BP systolic 99–108; BP diastolic 63–74; TEMP 97.9–98.4; O2SAT 97–100
[2023-12-26] VITALS (13 sets, daily range): BP systolic 98–118; BP diastolic 67–82; TEMP 97.5–98.8; O2SAT 95–100
[2023-12-27] VITALS (11 sets, daily range): BP systolic 101–108; BP diastolic 72–78; TEMP 97.5–97.6; O2SAT 96–100
[2023-12-28] VITALS (12 sets, daily range): BP systolic 98–111; BP diastolic 62; TEMP 98–98.4; O2SAT 96–100
[2023-12-29] VITALS (14 sets, daily range): BP systolic 98–106; BP diastolic 62–68; TEMP 98.1; O2SAT 97–100
[2023-12-29 07:48] LABS: CALCIUM, SERUM 9.7 mg/dL (8.5-10.1); CREATININE 0.6 mg/dL (0.6-1.3)
[2023-12-30] VITALS (13 sets, daily range): BP systolic 92–107; BP diastolic 68; TEMP 97.5–98.3; O2SAT 98–100
[2023-12-31] VITALS (12 sets, daily range): BP systolic 99–113; BP diastolic 69–71; TEMP 97.6–98.4; O2SAT 96–100
[2024-01-01] VITALS (13 sets, daily range): BP systolic 101–119; BP diastolic 63–66; TEMP 97.5–98; O2SAT 98–100
[2024-01-01] MEDS: TWOCAL HN 1,000 ML LIQUID GT SCH (12:11)
[2024-01-01] MEDS: TRAZODONE 50 MG TABLET GT SCH (22:12)
[2024-01-02] VITALS (14 sets, daily range): BP systolic 104–107; BP diastolic 74; TEMP 97.9–98.4; O2SAT 99–100
[2024-01-03] VITALS (12 sets, daily range): BP systolic 106; BP diastolic 80; TEMP 98.3; O2SAT 96–100
[2024-01-03] MEDS: BACI/NEOM/POLY B OINT PKT 1 UDPKT PACKET TP SCH (10:00)
[2024-01-03] MEDS ORDERED: BACI/NEOM/POLY B OINT PKT 1 UDPKT PACKET TP SCH (21:00)
[2024-01-03] MEDS: METOPROLOL TARTRATE 25 MG TABLET GT SCH (21:42)
[2024-01-04] VITALS (13 sets, daily range): BP systolic 105; BP diastolic 68; TEMP 98.4; O2SAT 98–100
[2024-01-04] MEDS: AMIODARONE HCL 200 MG TABLET GT SCH (09:00)
[2024-01-05] VITALS (12 sets, daily range): BP systolic 105–112; BP diastolic 70–72; TEMP 97.3–98.1; O2SAT 98–100
[2024-01-06] VITALS (12 sets, daily range): BP systolic 97; BP diastolic 73; TEMP 98.1; O2SAT 98–100
[2024-01-07] VITALS (14 sets, daily range): BP systolic 101–117; BP diastolic 64–79; TEMP 97.5–98.6; O2SAT 98–100
[2024-01-08] VITALS (12 sets, daily range): BP systolic 90–108; BP diastolic 57–69; TEMP 97.3–98.4; O2SAT 98–100
[2024-01-09] VITALS (14 sets, daily range): BP systolic 103–105; BP diastolic 58–74; TEMP 97.2–98.3; O2SAT 97–100
[2024-01-10] VITALS (12 sets, daily range): BP systolic 110–114; BP diastolic 75–83; TEMP 97.9–98.5; O2SAT 97–100
[2024-01-11] VITALS (13 sets, daily range): BP systolic 101–126; BP diastolic 70–73; TEMP 97.7–98.2; O2SAT 97–100
[2024-01-12] VITALS (11 sets, daily range): BP systolic 107–121; BP diastolic 60–64; TEMP 98–98.2; O2SAT 98–100
[2024-01-12] MEDS: DOCUSATE SODIUM LIQ 100 MG/10 ML UDC GT SCH (21:21)
[2024-01-13] VITALS (12 sets, daily range): BP systolic 128; BP diastolic 68; TEMP 97.5; O2SAT 97–100
[2024-01-14] VITALS (13 sets, daily range): BP systolic 102–124; BP diastolic 61–72; TEMP 98–98.3; O2SAT 97–100
[2024-01-15] VITALS (12 sets, daily range): BP systolic 107–134; BP diastolic 65–82; TEMP 97.3–98.6; O2SAT 97–100
[2024-01-16] VITALS (13 sets, daily range): BP systolic 95–109; BP diastolic 64–80; TEMP 76–98.8; O2SAT 97–100
[2024-01-17] VITALS (11 sets, daily range): BP systolic 102–104; BP diastolic 71–78; TEMP 97.9–99.3; O2SAT 94–100
[2024-01-18] VITALS (13 sets, daily range): BP systolic 107–122; BP diastolic 62–68; TEMP 97.6–98.8; O2SAT 97–99
[2024-01-19] VITALS (12 sets, daily range): BP systolic 112–126; BP diastolic 69–71; TEMP 97.8–98.3; O2SAT 98–100
[2024-01-19] MEDS ORDERED: BARIUM SULFATE 98% 135 ML SUSP.RECON PO ONE (11:41)
[2024-01-20] VITALS (10 sets, daily range): BP systolic 98–127; BP diastolic 69–80; TEMP 97.8–98.6; O2SAT 98–100
[2024-01-21] VITALS (13 sets, daily range): BP systolic 94–113; BP diastolic 67–71; TEMP 97.5–98.4; O2SAT 98–100
[2024-01-22] VITALS (12 sets, daily range): BP systolic 98–99; BP diastolic 66–70; TEMP 97.9–98.8; O2SAT 98–99
[2024-01-23] VITALS (11 sets, daily range): BP systolic 105; BP diastolic 65; TEMP 97.9; O2SAT 98–100
[2024-01-24] VITALS (12 sets, daily range): BP systolic 98–110; BP diastolic 64–66; TEMP 97.5–98.3; O2SAT 97–100
[2024-01-25] VITALS (12 sets, daily range): BP systolic 100–102; BP diastolic 62–73; TEMP 98–98.4; O2SAT 96–100
[2024-01-26] VITALS (11 sets, daily range): BP systolic 99–100; BP diastolic 61; TEMP 97.8–98; O2SAT 97–100
[2024-01-27] VITALS (12 sets, daily range): BP systolic 93–106; BP diastolic 72–73; TEMP 97.9–98.2; O2SAT 98–100
[2024-01-28] VITALS (13 sets, daily range): BP systolic 112–113; BP diastolic 57–78; TEMP 98.1–98.6; O2SAT 96–100
[2024-01-29] VITALS (14 sets, daily range): BP systolic 93–101; BP diastolic 72–75; TEMP 97.6–98.1; O2SAT 97–100
[2024-01-30] VITALS (13 sets, daily range): BP systolic 96–105; BP diastolic 63–66; TEMP 97.9–98.1; O2SAT 65–100
[2024-01-31] VITALS (12 sets, daily range): BP systolic 98; BP diastolic 68; TEMP 98.2; O2SAT 97–99
[2024-02-01] VITALS (12 sets, daily range): BP systolic 96–110; BP diastolic 63–81; TEMP 98.6–99; O2SAT 95–99
[2024-02-02] VITALS (11 sets, daily range): BP systolic 92; BP diastolic 60; TEMP 97.3; O2SAT 98–100
[2024-02-03] VITALS (11 sets, daily range): BP systolic 109; BP diastolic 71; TEMP 98.1; O2SAT 97–100
[2024-02-04] VITALS (13 sets, daily range): BP systolic 102–124; BP diastolic 67–79; TEMP 97.7–98.3; O2SAT 98–100
[2024-02-04] MEDS: POLYETHYLENE GLYCOL 3350 17 GM POWD.PACK GT PRN (18:59)
[2024-02-05] VITALS (13 sets, daily range): BP systolic 94–108; BP diastolic 61–80; TEMP 97.7–98.7; O2SAT 96–100
[2024-02-06] VITALS (12 sets, daily range): BP systolic 103–109; BP diastolic 63–64; TEMP 98.2–98.8; O2SAT 96–100
[2024-02-06] MEDS: AMIODARONE HCL 200 MG TABLET GT SCH (09:11)
[2024-02-06] MEDS: METOPROLOL TARTRATE 25 MG TABLET GT SCH (09:12)
[2024-02-06] MEDS ORDERED: FLU VACC 2024-25(6MOS UP) 0.5 ML SYRINGE IM ONE (14:00)
[2024-02-06] MEDS: FLU VACC 2024-25(6MOS UP) 0.5 ML SYRINGE IM ONE (18:00)
[2024-02-07] VITALS (13 sets, daily range): BP systolic 103; BP diastolic 65; TEMP 97.5–98.1; O2SAT 96–99
[2024-02-08] VITALS (11 sets, daily range): BP systolic 98–106; BP diastolic 62–70; TEMP 97.9–98.2; O2SAT 96–99
[2024-02-09] VITALS (13 sets, daily range): BP systolic 101–112; BP diastolic 68–70; TEMP 98.3–98.4; O2SAT 95–100
[2024-02-10] VITALS (13 sets, daily range): BP systolic 103–105; BP diastolic 59–65; TEMP 97.7–97.9; O2SAT 96–100
[2024-02-10] MEDS: COVID-19 VACC, SPIKEVAX /PF 50 MCG/0.5 ML VIAL/SYR IM ONE (20:38)
[2024-02-11] VITALS (11 sets, daily range): BP systolic 106; BP diastolic 77; TEMP 98.7; O2SAT 97–99
[2024-02-12] VITALS (12 sets, daily range): BP systolic 94–96; BP diastolic 60–75; TEMP 97.4–97.5; O2SAT 96–99
[2024-02-13] VITALS (12 sets, daily range): BP systolic 114; BP diastolic 58; TEMP 98.4; O2SAT 95–98
[2024-02-14] VITALS (13 sets, daily range): BP systolic 125–130; BP diastolic 58–60; TEMP 98–98.4; O2SAT 96–99
[2024-02-15] VITALS (13 sets, daily range): BP systolic 98–120; BP diastolic 60–64; TEMP 98–98.2; O2SAT 95–99
[2024-02-16] VITALS (12 sets, daily range): BP systolic 104–130; BP diastolic 50–73; TEMP 98.6–99; O2SAT 95–99
[2024-02-17] VITALS (12 sets, daily range): BP systolic 99–101; BP diastolic 63–81; TEMP 97.6–97.7; O2SAT 97–100
[2024-02-18] VITALS (13 sets, daily range): BP systolic 99–126; BP diastolic 61–71; TEMP 97.6–98.1; O2SAT 96–99
[2024-02-18] MEDS: MELATONIN 3 MG TABLET GT SCH (14:00)
[2024-02-19] VITALS (13 sets, daily range): BP systolic 101; BP diastolic 67–75; TEMP 98.3–98.4; O2SAT 96–99
[2024-02-20] VITALS (13 sets, daily range): BP systolic 103; BP diastolic 68; TEMP 98.1; O2SAT 97–100
[2024-02-21] VITALS (13 sets, daily range): BP systolic 97–99; BP diastolic 61–69; TEMP 97.5–98; O2SAT 98–100
[2024-02-22] VITALS (12 sets, daily range): BP systolic 89–94; BP diastolic 53–60; TEMP 97.7; O2SAT 97–100
[2024-02-23] VITALS (11 sets, daily range): BP systolic 95; BP diastolic 66; TEMP 98.1; O2SAT 98–100
[2024-02-24] VITALS (11 sets, daily range): BP systolic 115–121; BP diastolic 67–73; TEMP 97.9–98.3; O2SAT 98–100
[2024-02-25] VITALS (12 sets, daily range): BP systolic 92–126; BP diastolic 62–69; TEMP 98–98.3; O2SAT 98–100
[2024-02-26] VITALS (14 sets, daily range): BP systolic 104; BP diastolic 65; TEMP 98.4; O2SAT 98–99
[2024-02-27] VITALS (11 sets, daily range): BP systolic 99; BP diastolic 66; TEMP 98.2; O2SAT 98–99
[2024-02-28] VITALS (14 sets, daily range): BP systolic 96–98; BP diastolic 64–66; TEMP 98–98.1; O2SAT 99
[2024-02-29] VITALS (12 sets, daily range): BP systolic 122; BP diastolic 72; TEMP 98.7; O2SAT 96–99
[2024-03-01] VITALS (11 sets, daily range): BP systolic 105; BP diastolic 74; TEMP 97.5; O2SAT 96–99
[2024-03-02] VITALS (12 sets, daily range): BP systolic 114; BP diastolic 73; TEMP 98.3; O2SAT 98–100
[2024-03-03] VITALS (9 sets, daily range): BP systolic 93; BP diastolic 72; TEMP 97.9; O2SAT 94–99
[2024-03-04] VITALS (11 sets, daily range): BP systolic 96; BP diastolic 66; TEMP 98; O2SAT 96–99
[2024-03-05] VITALS (12 sets, daily range): BP systolic 97–111; BP diastolic 63–71; TEMP 97.7–98.1; O2SAT 96–99
[2024-03-06] VITALS (9 sets, daily range): BP systolic 100–102; BP diastolic 65–68; TEMP 97.9–98; O2SAT 96–99
[2024-03-07] VITALS (13 sets, daily range): BP systolic 95–105; BP diastolic 57–78; TEMP 97.9–98; O2SAT 96–100
[2024-03-08] VITALS (11 sets, daily range): BP systolic 98; BP diastolic 66; TEMP 98; O2SAT 98–99
[2024-03-09] VITALS (10 sets, daily range): BP systolic 101–102; BP diastolic 56–66; TEMP 97.6–97.7; O2SAT 98–100
[2024-03-10] VITALS (13 sets, daily range): BP systolic 93–116; BP diastolic 68–79; TEMP 97.6–98.5; O2SAT 95–99
[2024-03-11] VITALS (11 sets, daily range): BP systolic 100; BP diastolic 73; TEMP 97.9; O2SAT 96–99
[2024-03-12] VITALS (11 sets, daily range): BP systolic 91–114; BP diastolic 63–72; TEMP 97.6–98.2; O2SAT 96–98
[2024-03-12] MEDS ORDERED: ACETAMINOPHEN 650 MG/20.3 ML UDC GT PRN (19:00)
[2024-03-13] VITALS (12 sets, daily range): BP systolic 96; BP diastolic 58; TEMP 98.3; O2SAT 96–99
[2024-03-14] VITALS (12 sets, daily range): BP systolic 98; BP diastolic 58; TEMP 98.5; O2SAT 96–99
[2024-03-15] VITALS (13 sets, daily range): BP systolic 98–101; BP diastolic 56–68; TEMP 98.1–98.6; O2SAT 96–100
[2024-03-16] VITALS (14 sets, daily range): BP systolic 101–108; BP diastolic 65; TEMP 97.9–98; O2SAT 96–100
[2024-03-17] VITALS (9 sets, daily range): BP systolic 113; BP diastolic 60; TEMP 98; O2SAT 95–100
[2024-03-18] VITALS (13 sets, daily range): BP systolic 96–107; BP diastolic 63–68; TEMP 98–98.1; O2SAT 96–100
[2024-03-19] VITALS (12 sets, daily range): BP systolic 98–99; BP diastolic 62–64; TEMP 98–98.8; O2SAT 98–100
[2024-03-20] VITALS (11 sets, daily range): BP systolic 101; BP diastolic 60; TEMP 97.9; O2SAT 93–99
[2024-03-20] MEDS: BACI/NEOM/POLY B OINT PKT 1 UDPKT PACKET TP SCH (20:56)
[2024-03-21] VITALS (13 sets, daily range): BP systolic 91–95; BP diastolic 60–72; TEMP 97.5–98.3; O2SAT 95–100
[2024-03-22] VITALS (14 sets, daily range): BP systolic 95–99; BP diastolic 59–66; TEMP 97.6–98.2; O2SAT 95–100
[2024-03-22] MEDS: BACI/NEOM/POLY B OINT PKT 1 UDPKT PACKET TP SCH (21:23)
[2024-03-23] VITALS (13 sets, daily range): BP systolic 92–106; BP diastolic 62–70; TEMP 98–98.5; O2SAT 96–99
[2024-03-24] VITALS (12 sets, daily range): BP systolic 100–105; BP diastolic 73–82; TEMP 98.1–98.3; O2SAT 95–99
[2024-03-25] VITALS (13 sets, daily range): BP systolic 97–101; BP diastolic 62–66; TEMP 97.3–97.5; O2SAT 95–99
[2024-03-26] VITALS (12 sets, daily range): BP systolic 98–121; BP diastolic 61–69; TEMP 98.2–98.6; O2SAT 95–99
[2024-03-27] VITALS (12 sets, daily range): BP systolic 92–109; BP diastolic 55–59; TEMP 98.3–98.6; O2SAT 94–99
[2024-03-28] VITALS (12 sets, daily range): BP systolic 90–95; BP diastolic 61–70; TEMP 97–98.4; O2SAT 93–100
[2024-03-29] VITALS (11 sets, daily range): BP systolic 96; BP diastolic 63; TEMP 97.9; O2SAT 93–99
[2024-03-29] MEDS: TWOCAL HN 1,000 ML LIQUID GT SCH (09:19)
[2024-03-30] VITALS (13 sets, daily range): BP systolic 94–99; BP diastolic 62–71; TEMP 97.9–98.1; O2SAT 93–99
[2024-03-31] VITALS (14 sets, daily range): BP systolic 95–98; BP diastolic 66–67; TEMP 97.9; O2SAT 96–100
[2024-03-31] MEDS: ENSURE ENLIVE 237 ML LIQUID (VANILLA) PO SCH (09:00)
[2024-04-01] VITALS (13 sets, daily range): BP systolic 97–98; BP diastolic 61–63; TEMP 97.9–98; O2SAT 96–100
[2024-04-02] VITALS (11 sets, daily range): BP systolic 99–110; BP diastolic 64–70; TEMP 97.9–98.2; O2SAT 96–100
[2024-04-03] VITALS (12 sets, daily range): BP systolic 127; BP diastolic 65; TEMP 98; O2SAT 97–99
[2024-04-04] VITALS (9 sets, daily range): BP systolic 128; BP diastolic 72; TEMP 98; O2SAT 95–100
[2024-04-05] VITALS (12 sets, daily range): BP systolic 99–111; BP diastolic 59–67; TEMP 98–98.7; O2SAT 98–99
[2024-04-06] VITALS (12 sets, daily range): BP systolic 98–114; BP diastolic 58–67; TEMP 97.5–98.1; O2SAT 96–99
[2024-04-07] VITALS (13 sets, daily range): BP systolic 101–126; BP diastolic 62–71; TEMP 98.2–98.3; O2SAT 94–99
[2024-04-08] VITALS (12 sets, daily range): BP systolic 93–96; BP diastolic 58; TEMP 97.6–97.7; O2SAT 95–99
[2024-04-09] VITALS (12 sets, daily range): BP systolic 96–109; BP diastolic 65–68; TEMP 98–98.1; O2SAT 97–99
[2024-04-10] VITALS (11 sets, daily range): BP systolic 95; BP diastolic 62; TEMP 97.9; O2SAT 98–100
[2024-04-11] VITALS (9 sets, daily range): BP systolic 110; BP diastolic 71; TEMP 98; O2SAT 97–100
[2024-04-12] VITALS (9 sets, daily range): BP systolic 99; BP diastolic 61; TEMP 98.1; O2SAT 96–100
[2024-04-13] VITALS (11 sets, daily range): BP systolic 97–99; BP diastolic 62–65; TEMP 98–98.1; O2SAT 96–100
[2024-04-14] VITALS (12 sets, daily range): BP systolic 105–126; BP diastolic 64–88; TEMP 97.8–98.1; O2SAT 96–100
[2024-04-15] VITALS (8 sets, daily range): BP systolic 96–126; BP diastolic 59–64; TEMP 97.8–97.9; O2SAT 96–100
[2024-04-15] MEDS: TRAZODONE 50 MG TABLET PO SCH (22:00)
[2024-04-16] VITALS (11 sets, daily range): BP systolic 96; BP diastolic 66–74; TEMP 97.8–98.1; O2SAT 97–99
[2024-04-16] MEDS ORDERED: diphenhydrAMINE HCL ELIX 25 MG/10 ML UDC PO PRN
[2024-04-16] MEDS: BACLOFEN (10 MG) 10 MG TABLET PO SCH (01:00)
[2024-04-16] MEDS ORDERED: GUAIFENESIN 300 MG/15 ML UDC PO PRN (03:00)
[2024-04-16] MEDS: ACETAMINOPHEN LIQUID 325 MG/10.1 ML UDC PO SCH (05:29)
[2024-04-16] MEDS: GABAPENTIN 300 MG CAPSULE PO SCH (05:29)
[2024-04-16] MEDS: ASPIRIN 81 MG TAB.CHEW PO SCH (08:06)
[2024-04-16] MEDS: DOCUSATE SODIUM LIQ 100 MG/10 ML UDC PO SCH (08:06)
[2024-04-16] MEDS: MULTIVITAMINS,THERAGRAN 1 UDTAB TABLET PO SCH (08:08)
[2024-04-16] MEDS: AMIODARONE HCL 200 MG TABLET PO SCH (08:11)
[2024-04-16] MEDS: METOPROLOL TARTRATE 25 MG TABLET PO SCH (08:13)
[2024-04-16] MEDS: LEVETIRACETAM SOL (5 ML) 100 MG/ML UDC PO SCH (08:14)
[2024-04-16] MEDS: MELATONIN 3 MG TABLET PO SCH (13:18)
[2024-04-17] VITALS (9 sets, daily range): BP systolic 94; BP diastolic 66; TEMP 98; O2SAT 96–98
[2024-04-18] VITALS (7 sets, daily range): BP systolic 98–101; BP diastolic 71–72; TEMP 97.5–98.1; O2SAT 96–99
[2024-04-19] VITALS (11 sets, daily range): BP systolic 101–107; BP diastolic 70–73; TEMP 97.5–97.8; O2SAT 93–99
[2024-04-20] VITALS (12 sets, daily range): BP systolic 92–106; BP diastolic 65–78; TEMP 97.7–97.8; O2SAT 96–100
[2024-04-20] MEDS: POLYETHYLENE GLYCOL 3350 17 GM POWD.PACK PO PRN (18:35)
[2024-04-21] VITALS (14 sets, daily range): BP systolic 94–96; BP diastolic 53–66; TEMP 98.1–98.3; O2SAT 94–100
[2024-04-21 07:43] LABS: BASOPHILS % (AUTO) 0.3 % (0.0-2.0); EOSINOPHILS # (AUTO) 0.1 K/uL (0.0-0.7); EOSINOPHILS % (AUTO) 2.6 % (0.0-6.0); HEMATOCRIT 44 % (39-51); HEMOGLOBIN 15.1 g/dL (13.5-17.5); LYMPHOCYTES # (AUTO) 1.9 K/uL (0.8-4.8); LYMPHOCYTES % (AUTO) 33.9 % (20.0-44.0); MEAN CORPUSCULAR HEMOGLOBIN 30 PG (26.0-33.0); MEAN CORPUSCULAR HGB CONC 34 g/dl (31.0-36.0); MEAN CORPUSCULAR VOLUME 89 fL (80-96); MONOCYTES # (AUTO) 0.4 K/uL (0.1-1.30); MONOCYTES % (AUTO) 7.9 % (2.0-12.0); NEUTROPHILS # (AUTO) 3.1 K/uL (1.8-8.9); NEUTROPHILS % (AUTO) 55.3 % (43.0-81.0); PLATELET COUNT (AUTO) 209 K/uL (150-450); RED CELL DISTRIBUTION WIDTH 13.7 % (11.5-15.0); WHITE BLOOD COUNT (AUTO) 5.6 K/uL (4.3-11.0)
[2024-04-21 07:46] LABS: CALCIUM, SERUM 9.5 mg/dL (8.5-10.1); CREATININE 0.7 mg/dL (0.6-1.3); POTASSIUM 5.9 mmol/L (3.5-5.1)
[2024-04-21] MEDS: SODIUM ZIRCONIUM CYCLOSILICATE 10 GM POWD.PACK PO ONE (14:04)
[2024-04-22] VITALS (12 sets, daily range): BP systolic 95–102; BP diastolic 65–69; TEMP 97.7–97.9; O2SAT 95–100
[2024-04-23] VITALS (12 sets, daily range): BP systolic 97–102; BP diastolic 63–69; TEMP 97.7–98.1; O2SAT 97–100
[2024-04-24] VITALS (13 sets, daily range): BP systolic 102–109; BP diastolic 68–70; TEMP 97.6–98; O2SAT 97–100
[2024-04-25] VITALS (11 sets, daily range): BP systolic 94–100; BP diastolic 67–71; TEMP 98; O2SAT 97–100
[2024-04-26] VITALS (10 sets, daily range): BP systolic 104; BP diastolic 72; TEMP 97.5; O2SAT 96–99
[2024-04-26] MEDS: BACI/NEOM/POLY B OINT PKT 1 UDPKT PACKET TP SCH (09:00)
[2024-04-26] MEDS: NEOMY SULF/BACITRAC ZN/POLY 15 GM TUBE TP SCH (21:00)
[2024-04-27] VITALS (10 sets, daily range): BP systolic 90–105; BP diastolic 66–81; TEMP 98.1–98.2; O2SAT 95–99
[2024-04-27] MEDS ORDERED: SILVER NITRATE APPLICATOR 1 EA BOX TP PRN (16:00)
[2024-04-27] MEDS: ACETAMINOPHEN 650 MG/20.3 ML UDC PO PRN (18:01)
[2024-04-28] VITALS (9 sets, daily range): BP systolic 100; BP diastolic 63; TEMP 97.9; O2SAT 98–99
[2024-04-29] VITALS (15 sets, daily range): BP systolic 98–104; BP diastolic 66–68; TEMP 97.9–98.1; O2SAT 94–100
[2024-04-30] VITALS (9 sets, daily range): BP systolic 111; BP diastolic 82; TEMP 97.7; O2SAT 96–100
== END 2024-04-30 15:30 | disposition home or self-care (01) | DRG 951 ==
LOC: SA 16:56
PROVIDERS: ADMIT Internal Medicine; ATTEND Internal Medicine
PROC: 0KBP0ZZ Excision of Left Hip Muscle, Open Approach (ICD-10-PCS; principal; 2023-05-21)
PROC: 0KBN0ZZ Excision of Right Hip Muscle, Open Approach (ICD-10-PCS; 2023-05-21)
PROC: 0KBP0ZZ Excision of Left Hip Muscle, Open Approach (ICD-10-PCS; 2023-05-29)
PROC: 0KBN0ZZ Excision of Right Hip Muscle, Open Approach (ICD-10-PCS; 2023-05-29)
PROC: 0KBP0ZZ Excision of Left Hip Muscle, Open Approach (ICD-10-PCS; 2023-06-05)
PROC: 0KBN0ZZ Excision of Right Hip Muscle, Open Approach (ICD-10-PCS; 2023-06-05)
PROC: 0KBP0ZZ Excision of Left Hip Muscle, Open Approach (ICD-10-PCS; 2023-06-13)
PROC: 0KBN0ZZ Excision of Right Hip Muscle, Open Approach (ICD-10-PCS; 2023-06-13)
PROC: 0KBP0ZZ Excision of Left Hip Muscle, Open Approach (ICD-10-PCS; 2023-06-20)
PROC: 0KBN0ZZ Excision of Right Hip Muscle, Open Approach (ICD-10-PCS; 2023-06-20)
PROC: 05HC33Z Insertion of Infusion Device into Left Basilic Vein, Percutaneous Approach (ICD-10-PCS; 2023-06-21)
PROC: 0QB10ZZ Excision of Sacrum, Open Approach (ICD-10-PCS; 2023-06-27)
PROC: 0QB10ZZ Excision of Sacrum, Open Approach (ICD-10-PCS; 2023-07-03)
PROC: 0QB10ZZ Excision of Sacrum, Open Approach (ICD-10-PCS; 2023-07-11)
PROC: 0QB10ZZ Excision of Sacrum, Open Approach (ICD-10-PCS; 2023-07-18)
PROC: 0QB10ZZ Excision of Sacrum, Open Approach (ICD-10-PCS; 2023-07-24)
PROC: 0KBP0ZZ Excision of Left Hip Muscle, Open Approach (ICD-10-PCS; 2023-07-31)
PROC: 0KBN0ZZ Excision of Right Hip Muscle, Open Approach (ICD-10-PCS; 2023-07-31)
PROC: 0KBP0ZZ Excision of Left Hip Muscle, Open Approach (ICD-10-PCS; 2023-07-31)
PROC: 0KBN0ZZ Excision of Right Hip Muscle, Open Approach (ICD-10-PCS; 2023-07-31)
PROC: 0KBP0ZZ Excision of Left Hip Muscle, Open Approach (ICD-10-PCS; 2023-08-08)
PROC: 0KBN0ZZ Excision of Right Hip Muscle, Open Approach (ICD-10-PCS; 2023-08-08)
PROC: 0KBP0ZZ Excision of Left Hip Muscle, Open Approach (ICD-10-PCS; 2023-08-26)
PROC: 0KBN0ZZ Excision of Right Hip Muscle, Open Approach (ICD-10-PCS; 2023-08-26)
PROC: 0KBP0ZZ Excision of Left Hip Muscle, Open Approach (ICD-10-PCS; 2023-09-02)
PROC: 0KBN0ZZ Excision of Right Hip Muscle, Open Approach (ICD-10-PCS; 2023-09-02)
PROC: 0KBP0ZZ Excision of Left Hip Muscle, Open Approach (ICD-10-PCS; 2023-09-09)
PROC: 0KBN0ZZ Excision of Right Hip Muscle, Open Approach (ICD-10-PCS; 2023-09-09)
PROC: 0KBP0ZZ Excision of Left Hip Muscle, Open Approach (ICD-10-PCS; 2023-09-16)
PROC: 0KBN0ZZ Excision of Right Hip Muscle, Open Approach (ICD-10-PCS; 2023-09-16)
PROC: 0KBP0ZZ Excision of Left Hip Muscle, Open Approach (ICD-10-PCS; 2023-09-23)
PROC: 0KBN0ZZ Excision of Right Hip Muscle, Open Approach (ICD-10-PCS; 2023-09-23)
PROC: 0KBN0ZZ Excision of Right Hip Muscle, Open Approach (ICD-10-PCS; 2023-09-30)
PROC: 0KBN0ZZ Excision of Right Hip Muscle, Open Approach (ICD-10-PCS; 2023-09-30)
PROC: 0KBP0ZZ Excision of Left Hip Muscle, Open Approach (ICD-10-PCS; 2023-10-06)
PROC: 0KBN0ZZ Excision of Right Hip Muscle, Open Approach (ICD-10-PCS; 2023-10-06)
PROC: 0KBP0ZZ Excision of Left Hip Muscle, Open Approach (ICD-10-PCS; 2023-10-24)
PROC: 0KBN0ZZ Excision of Right Hip Muscle, Open Approach (ICD-10-PCS; 2023-10-24)
PROC: 0KBP0ZZ Excision of Left Hip Muscle, Open Approach (ICD-10-PCS; 2023-11-05)
PROC: 0KBN0ZZ Excision of Right Hip Muscle, Open Approach (ICD-10-PCS; 2023-11-05)
PROC: 0KBP0ZZ Excision of Left Hip Muscle, Open Approach (ICD-10-PCS; 2023-11-11)
PROC: 0KBN0ZZ Excision of Right Hip Muscle, Open Approach (ICD-10-PCS; 2023-11-11)
PROC: 0KBP0ZZ Excision of Left Hip Muscle, Open Approach (ICD-10-PCS; 2023-11-18)
PROC: 0KBN0ZZ Excision of Right Hip Muscle, Open Approach (ICD-10-PCS; 2023-11-18)
PROC: 0KBP0ZZ Excision of Left Hip Muscle, Open Approach (ICD-10-PCS; 2023-11-27)
PROC: 0KBN0ZZ Excision of Right Hip Muscle, Open Approach (ICD-10-PCS; 2023-11-27)
PROC: 0JB70ZZ Excision of Back Subcutaneous Tissue and Fascia, Open Approach (ICD-10-PCS; 2023-12-05)
PROC: 0JB70ZZ Excision of Back Subcutaneous Tissue and Fascia, Open Approach (ICD-10-PCS; 2023-12-09)
PROC: 0JB70ZZ Excision of Back Subcutaneous Tissue and Fascia, Open Approach (ICD-10-PCS; 2023-12-23)
DX: J96.10 Chronic respiratory failure, unspecified whether with hypoxia or hypercapnia (principal); G93.1 Anoxic brain damage, not elsewhere classified; L89.154 Pressure ulcer of sacral region, stage 4; R64 Cachexia; A04.72 Enterocolitis due to Clostridium difficile, not specified as recurrent; D63.8 Anemia in other chronic diseases classified elsewhere; I47.10 Supraventricular tachycardia, unspecified; F29 Unspecified psychosis not due to a substance or known physiological condition; R45.851 Suicidal ideations; R65.10 Systemic inflammatory response syndrome (SIRS) of non-infectious origin without acute organ dysfunction; Z93.0 Tracheostomy status; E11.9 Type 2 diabetes mellitus without complications; J98.11 Atelectasis; Z93.1 Gastrostomy status; Z87.820 Personal history of traumatic brain injury; R13.10 Dysphagia, unspecified; R31.0 Gross hematuria; F41.9 Anxiety disorder, unspecified; G47.00 Insomnia, unspecified; S06.9XAS Unspecified intracranial injury with loss of consciousness status unknown, sequela; S12.600S Unspecified displaced fracture of seventh cervical vertebra, sequela; S36.039S Unspecified laceration of spleen, sequela; S42.002S Fracture of unspecified part of left clavicle, sequela; S72.002S Fracture of unspecified part of neck of left femur, sequela; V89.2XXS Person injured in unspecified motor-vehicle accident, traffic, sequela; Z74.01 Bed confinement status; Z74.09 Other reduced mobility; Z78.9 Other specified health status
CPT/HCPCS: 31720; 36410; 36415; 71045-TC; 72125-TC; 72192-TC; 74230-TC; 80048-TC; 80053-TC; 81001; 82962-TC; 83735-TC; 83880; 84100-TC; 84132-TC; 84443-TC; 85025-TC; 86580-TC; 87081-TC; 87086-TC; 92507-TC; 92521; 92526; 92611-TC; 93307-TC; 94640-TC; 94760-TC; 94761-TC; 94762-TC; 94799-TC; 97110-TC; 97112-TC; 97530-TC; 97760-TC; A4217; A4223; A4349; A4623; A4629; A6248; A6253; A7526; J0696; J1650; J1815; J1953; J2060; J3490; J7030; J7060; L8501; Q0163; Q2036